=== PATIENT | female | born 1975 | race Caucasian/White ===

== ENCOUNTER 2025-05-19 19:27 | Emergency (ER) | payer OTHER, SELFPAY ==
--- OUTSIDE RECORDS SUMMARY | 2025-05-18 14:30 | XMS_ITS | Encounter Summary ---
Author Organization [facility] Address [address] [place] [address] Care Team Providers Care Batch Unit Treater Name Role Phone Erica Lopez MD Primary Care Provider [phone] Reason for Visit * Reason Comments Gynecologic Exam Lv 09-08-24 post op, last annual 05-15-24 pap 04-08-21 norm neg hpv Encounter Details Date Type Department Care Team ([facility] st Contact Info) Description 05/18/2025 2:30 PM EDT Office Visit [address] ORIENTATION AND MOBILITY INSTRUCTOR Department [address] [place] [phone] Nina Alvarenga MD [address] [place] [phone] Women's annual routine gynecological examination (Primary Dx) Social History Tobacco Use Types Packs/Day Years Used Date Smoking Tobacco: Former Cigarettes 0.5 6 0 07/19/1996 - 2002 Smokeless Tobacco: Never Alcohol Use Standard Drinks/Week Comments Yes 0 (1 standard drink = 0.6 oz pure alcohol) Social drinker 1-2 a month or less [facility] Utilities Answer Date Recorded In the past 12 months has [employer] electric, gas, oil, or water company threatened to shut off services in your home? No 10/02/2024 Hunger Vital Sign Answer Date Recorded Within the past 12 months, y ou worried that your food would run out before you got the money to buy more. Never true 10/03/19 25 Within the past 12 months, t he food you bought just didn't last and you didn't have money to get more. Never true 10/02/2024 Transportation Answer Date Recorded In the past 12 months, has l ack of reliable transportation kept you from medical appointments, meetings, work or from getting things needed for daily living? No 10/02/2024 Housing Answer Date Recorded Housing Risk Low 2 10/02/2024 Housing Risk Medium Not on file 10/02/2024 Housing Risk High Not on file 10/02/2024 What is your living situation today? [facility] 10/02/2024 Comments No Sex and Gender Information Value Date Recorded Sex Assigned at Female 07/05/2023 9:22 AM EST Legal Sex Female 12:04 AM EDT Gender Identity Female 07/05/2023 9:22 AM EST Sexual Orientation Straight 07/05/2023 9: 22 AM EST documented as of this encounter Last Filed Vital Signs Vital Sign Reading Time Taken Comments Blood Pressure 108/72 05/18/2025 2:23 PM EDT Pulse - - Temperature - - Respiratory Rate - - Oxygen Saturation - - Inhaled Oxygen Concentration - - Weight 58.1 kg (128 lb) 05/18/2025 2:23 PM EDT Height 170.2 cm (5' 7 ) 05/18/2025 2:23 PM EDT Body Mass Index 20.05 05/18/2025 2:23 PM EDT documented in this encounter Progress Notes * Nina Alvarenga MD - 05/18/2025 2:49 PM EDT Subjective Jasmin Pierre is a 49 y.o. G2, P2 menopausal female here for a routine annual exam. In 2020, patient was diagnosed with left invasive lobular cancer. She underwent chemotherapy, bilateral mastectomy followed by chemoradiation and tamoxifen for short time and now on Arimidex. Plan is Arimidex for 10 years. She is in a monogamous relationship and has decreased sex drive and some vaginal dryness help with lubrication. She underwent hysteroscopy in August 2024 for possible vaginal bleeding with finding showing atrophic endometrium with arcuate shaped uterus. Postmenopausal bleeding: No Vasomotor symptoms or vaginal dryness: No OBGYN History: No LMP recorded (lmp unknown). Patient is postmenopausal. Postmenopausal: Yes Last Pap: March 2021. Results were: negative cotest History of abnormal pap smears:Cryo of cervix in 2002 for LUCINDA-1 Last mammogram: Managed in the cancer center OB History No obstetric history on file. 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 Waller COLONOSCOPY 10/28/2022 Dr. Mckeon- Normal, repeat in 10 years. EYE SURGERY Bilateral 08/2022 GYNECOLOGIC CRYOSURGERY Cervix cryosurgery KNEE SURGERY Right 10/07/2011 Knee arthroscopy KNEE SURGERY Right 1994 MASTECTOMY 11/05/20 LA ESOPHAGOGASTRODUODENOSCOPY TRANSORAL DIAGNOSTIC N/A 08/09/2024 Procedure: UPPER ENDOSCOPY; DIAGNOSTIC WITH BRUSH/WASH (SP) WITH POSSIBLE MODERATE SEDATION; Surgeon: Aubrey Mckeon MD; Location: GI OR; Service: Gastroenterology LA HYSTEROSCOPY,W/ENDO BX N/A 08/25/2024 Procedure: HYSTEROSCOPY OPERATIVE; Surgeon: Nilson Reid MD; Location: OR; Service: Gynecology SIMPLE MASTECTOMY Bilateral 11/06/2020 With reconstruction Current Outpatient Medications Medication Sig Dispense Refill anastrozole (ARIMIDEX) 1 mg tablet Take 1 mg by mouth every night. ascorbic acid (VITAMIN C) 500 mg tablet Take 500 mg by mouth once a day. CALCIUM 26-MAGNESIUM 15-ZINC ORAL Take by mouth. cholecalciferol (VITAMIN D3) 2,000 unit tablet Take 1 tablet by mouth once a day. folic acid (FOLVITE) 1 mg tablet Take 1 mg by mouth once a day. LORazepam (ATIVAN) 0.5 mg tablet Take 1 tablet (0.5 mg total) by mouth 2 times a day as needed for anxiety. 20 tablet 1 nortriptyline (PAMELOR) 10 mg capsule Start nortriptyline 10 mg at bedtime for one week, then go upto 20 mg at bedtime after that as tolerated 180 capsule 11 oxybutynin (DITROPAN) 5 mg tablet Take 1 tablet by mouth 2 times a day. venlafaxine XR (EFFEXOR XR) 150 mg capsule Take 1 capsule (150 mg total) by mouth once a day. 90 capsule 3 zoledronic acid (ZOMETA INTRAVENOU) Infuse intravenously. Every 6 months No current facility-administered medications for this visit. Allergies Allergen Reactions Erythromycin Hives Penicillins Hives Reglan [Metoclopramide Hcl] Agitation And delusions Social History[1] Family History Problem Relation Age of Onset Hepatitis Mother abnormally smaller liver was not able to digest food, got hepatis A from [place] and when pt was 11 Lung disease Father copd, long covid; of covid complications and copd Asthma Brother Alcohol abuse Maternal Grandfather Diabetes Maternal Grandfather Alzheimer's disease Paternal Grandmother Parkinsonism Father's Brother motor and dementia Alzheimer's disease Mother's Brother Breast cancer Neg Hx Cervical cancer Neg Hx Colon cancer Neg Hx Endometrial cancer Neg Hx Ovarian cancer Neg Hx Osteoporosis Neg Hx Stroke Neg Hx Seizures Neg Hx Brain cancer Neg Hx Multiple sclerosis Neg Hx Review of Systems All other systems negative unless otherwise noted in the HPI. Objective General appearance: alert, appears stated age and cooperative Head: Normocephalic, without obvious abnormality, atraumatic Eyes: conjunctivae/corneas clear. PERRL, EOM's intact. Breasts: Status post bilateral mastectomy Abdomen: soft, non-tender Pelvic: cervix normal in appearance, external genitalia normal, no adnexal masses or tenderness, nocervical motion tenderness, uterus normal size, shape, and consistency and vagina normal without discharge Extremities: extremities normal, warm and well-perfused Skin: Skin color, texture, turgor normal. No rashes or lesions Neurologic: Grossly normal. Assessment & Plan 1. Women's annual routine gynecological examination (Primary) First visit with me for this 49-year-old 2 para 2 menopausal. She has been menopausal sincechemotherapy in 2020. She had stage IIIb invasive lobular left breast carcinoma and underwent bilateral mastectomy in 2020. She is now on Arimidex and the plan is for a total of 10 years. She is followed at cancer center at [facility]. She does experience vaginal dryness with relations and decreased libido relieved somewhat with lubrication. Pap smear was performed. DEXA is managed in the cancer center. - Thinprep Pap with HPV Screen and Reflex HPV 16, 18/45 - [place] only - RTC 1 year or prn Nina Alvarenga MD Answers submitted by the patient for this visit: Do you have any of the following problems? (Submitted on 05/12/2025) Speech difficulty: Yes [1] Social History Socioeconomic History Marital status: Spouse name: Not on file Number of children: Not on file Years of education: Not on file Highest education level: Not on file Occupational History Not on file Tobacco Use Smoking status: Former Current packs/day: 0.00 Average packs/day: 0.5 packs/day for 6.0 years (3.0 ttl pk-yrs) Types: Cigarettes Start date: 07/19/1996 Quit date: 2002 Years since quittin.8 Smokeless tobacco: Never Vaping Use Vaping status: Some Days Substances: THC Substance and Sexual Activity Alcohol use: Yes Comment: Social drinker 1-2 a month or less Drug use: Yes Types: Marijuana Comment: vapes marijuana nightly AND EDIBLES Sexual activity: Yes Partners: Male control/protection: None Other Topics Concern Not on file Social History Narrative Patient and , 2 children, boy/girl 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 documented in this encounter Plan of Treatment Upcoming Encounters Date Type Department Care Team (Late st Contact Info) Description 07/10/2025 8:45 AM EST Office Visit [address] Family Practice Department [address] [place] [phone] Erica Lopez MD [address] [place] [address] [place] [phone] 08/31/2025 11:00 AM EST Follow-Up [facility] Neurology [address] [place] [phone] Brionna Vyas MD [address] [place] [phone] 12/18/2025 2:30 PM EDT Appointment [facility] [address] [place] [phone] Brionna yVas MD [address] [place] [phone] Marco Jose MD [address] [place] [id number] Aj Kendrick 05/24/2026 2:00 PM EST Office Visit [address] ORIENTATION AND MOBILITY INSTRUCTOR Department [address] [place], [place] [id number] [place] [phone] Nina Alvarenga MD [address] [place] [phone] Scheduled Orders Name Type Priority Associated Diagnoses Orde r Schedule Thinprep Pap with HPV Screen and Reflex HPV 16, 18/45 - [facility] Pathology and Cytology Routine Women's annual routine gynecological examination Ordered: 05/18/2025 documented as of this encounter Visit Diagnoses Diagnosis Women's annual routine gynecological examination- Primary documented in this encounter Care Teams Batch Unit Treater Relationship Specialty Start Date End Date Erica Lopez MD [address] [place] [address] [address] [place] [address] PCP - General 02/04/17 documented as of this encounter
[2025-05-19] VITALS (7 sets, daily range): BP systolic 143–148; BP diastolic 80–99; PULSE 70–90; RESP 14–16; TEMP 36.6–36.7; O2SAT 95–99; BMI 21.5
--- NOTE | ~2025-05-19 | XR_ITS ---
CLINICAL HISTORY: ? posterior dislocation 2 view left shoulder Comparison: CR - XR HUMERUS 1V - 05/19/25 19:44 EDT Findings: The transscapular Y-view demonstrates a posterior humeral dislocation within the glenohumeral joint. The external rotation view shows flattening of the humeral head. No obvious fracture deformity is seen. No acute fractures or dislocations elsewhere. Partially visualized left lung and heart are unremarkable. Surgical clips in the left axilla. IMPRESSION: Posterior humeral dislocation with flattening of the humeral head. At the time of this dictation, a CT of the left shoulder has been performed and further details will be commented upon. This document has been electronically signed by: Laurent Grace MD on 05/19/2025 21:21:56
--- NOTE | ~2025-05-19 | CT_ITS ---
CLINICAL HISTORY: ssevere pain after injury, hx of post disloc CT of the left shoulder without contrast Comparison: Radiographs of the left shoulder 05/19/2025 Findings: There is a posterior humeral dislocation within the glenohumeral joint with an associated reverse hill-Sachs deformity. No other fractures are seen and no other dislocations are seen. No significant degenerative change in the left shoulder. Other osseous structures are grossly unremarkable. Partially visualized neck and thyroid are unremarkable. Partially visualized heart is unremarkable. Consolidation at the left lung apex with air bronchograms, possible pneumonia. Surgical clips in the left axilla. Impression: As reported on same day radiograph of the left shoulder, posterior humeral dislocation within the glenohumeral joint with an associated reverse Hill-Sachs deformity. Consolidation at the left lung apex with air bronchograms. Consider pneumonia in the appropriate clinical setting. This document has been electronically signed by: Laurent Grace MD on 05/19/2025 21:49:06
--- NOTE | ~2025-05-19 | XR_ITS ---
CLINICAL HISTORY: post reduction 2 view left shoulder Comparison: CR - XR SHOULDER LT MIN 2V - 05/19/2025 08:17 PM EDT Findings: Successful reduction of posterior left shoulder dislocation with the humeral head now overlying the glenoid on the transscapular Y-view. No new fracture or dislocation. Other osseous structures are unremarkable. Partially visualized heart and lungs are unremarkable. Surgical clips in the left axilla. IMPRESSION: Successful reduction of posterior left shoulder dislocation This document has been electronically signed by: Laurent Grace MD on 05/19/2025 23:56:14
--- NOTE | ~2025-05-19 | XR_ITS ---
CLINICAL HISTORY: ?dislocation 1 view left humerus Comparison: None provided Findings: The study is markedly limited. Only a single image was performed and positioning does not allow for either exclusion of dislocation or effusion. Incomplete visualization of the superior aspect of the humeral head. No significant arthritic change. No radiopaque foreign body. IMPRESSION: An elbow dislocation cannot be excluded based on this single limited view. Recommend AP and lateral view. If the patient is unable to tolerate these views, consider CT. This document has been electronically signed by: Maite Ocampo MD on 05/19/2025 20:21:26
--- NOTE | 2025-05-19 19:37 | ED_ITS ---
HPI - Extremity Problem General Chief complaint: Extremity Injury, Upper Stated complaint: left shoulder dislocation Time Seen by Provider: 05/19/25 19:37 History of Present Illness ED Provider: Zabrina BURRELL Narrative: The patient is a 49-year-old woman who comes to the emergency room after injuring her left shoulder while playing ice hockey. She says that she has a history of a prior dislocation of the same shoulder. She says that when she previously dose dislocated the shoulder it was a posterior dislocation. Today the patient was playing ice hockey and collided with a another player and injured her left shoulder in a manner that she felt was very similar to her previous left shoulder injury. She was in extreme pain. Her drove her to the emergency room. No numbness or tingling in the hand. There was no head injury. No other injuries aside from the shoulder injury. The patient reports that when she had her 1st shoulder dislocation she was in [place] of the time. She also says that there was difficulty in making the diagnosis. She also says that when her shoulder was 1st attempted to be reduced she was told that the shoulder had successfully been reduced but that that was not actually the case and she had to return for additional treatment. She ultimately followed up with [facility] The patient has a history of breast cancer. This was treated about 4 years ago. She is on Arixtra. She is also on venlafaxine. Related Data Allergies Allergy/AdvReac Type Severity Reaction Status Date / Time No Known Allergies Allergy Verified 05/19/25 19:34 Review of Systems Review of Systems: Yes all other systems are reviewed and are negative [facility] Social History Social History Smoked in Last 30 Days: No Use of substances other than those prescribed or required for medical reasons: No Advance Directives: No Advance Directives Information Provided: No Do you have a plan to hurt others: No Plan Physical Exam Vital Signs: Vital Signs: Last Vital Signs Temp 97.9 F 05/19/25 23:47 Pulse 86 05/19/25 23:47 Resp 14 05/19/25 23:47 BP 146/97 H 05/19/25 23:47 Pulse Ox 99 05/19/25 23:47 Oxygen Flow Rate 3 05/19/25 22:46 BMI result Body Mass Index 21.5 Const: Other: The patient is an athletic looking 49-year-old who was wearing a lot of heavy ice hockey protective equipment. She looked very uncomfortable. Orientation/consciousness: patient oriented x3 HEENT: Other: No signs of trauma to the head or the face. Eyes: Other: Pupils are round equal, conjunctivae are clear, extraocular movements intact Neck: Other: No posterior midline C-spine tenderness. Moving her neck easily without pain. C-spine is clinically clear. Resp: Effort & Inspection: normal respiratory effort Auscultation: clear to auscultation bilaterally Cardio: Rate: regular rate Rhythm: regular rhythm Heart sounds: S1 normal heart sound present and S2 normal heart sound present Skin: Other: Skin is intact Neuro: General: patient oriented x3, tone normal, moves all extremities, no focal motor deficits and CN's II-XI intact bilaterally Extrem: Other: The patient is extremely tender around the left shoulder and she will not move the left arm because of pain at the shoulder. The clavicle seems intact. There was no obvious gross deformity to the glenohumeral joint although it had a slightly strange appearance. The left hand is neurovascularly intact. Medications Administered Discontinued Medications Generic Name Dose Route Start Last Admin Trade Name Freq PRN Reason Stop Dose Admin Diazepam 5 mg 05/19/25 19:54 05/19/25 19:59 Diazepam 10 Mg/2 Ml Cartridge IVPUSH 05/19/25 19:55 5 mg STAT STA Administration Hydromorphone HCl 1 mg 05/19/25 19:44 05/19/25 19:53 Hydromorphone Hcl 1 Mg/Ml Syringe IVPUSH 05/19/25 19:45 1 mg ONCE ONE Administration Protocol Hydromorphone HCl 1 mg 05/19/25 20:17 05/19/25 20:21 Hydromorphone Hcl 1 Mg/Ml Syringe IVPUSH 05/19/25 20:18 1 mg ONCE ONE Administration Protocol Ketorolac Tromethamine 15 mg 05/19/25 21:26 05/19/25 21:44 Ketorolac Tromethamine 15 Mg/Ml Vial IVPUSH 05/19/25 21:27 15 mg ONCE ONE Administration Propofol 70 mg 05/19/25 22:13 05/19/25 22:28 Propofol 200 Mg/20 Ml Vial IVPUSH 05/19/25 22:14 70 mg ONCE ONE Administration Propofol 30 mg 05/19/25 22:42 05/19/25 22:31 Propofol 200 Mg/20 Ml Vial IVPUSH 05/19/25 22:43 30 mg ONCE ONE Administration Medical Decision Making Medical Decision Making [facility] Narrative: The patient is a 49-year-old woman who presents to the emergency room with a acute left shoulder pain after 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 She has a history of a previous left shoulder dislocation which she says was a posterior dislocation. We obtained x-rays that showed a ?light bulb? appearance to the left humeral head but it was my impression that there was not a definite dislocation apparent. The patient was treated with the pain medications and we obtained a CT scan. I reviewed the images of the CT scan and felt that there was a subluxation of the humeral head with malrotation but I do not appreciate a definite complete posterior dislocation. Radiology however felt that both the plain films and the CT scan were consistent with a posterior dislocation. The radiologist felt there was a reverse Hill-Sachs deformity. For this reason the patient was procedurally sedated for reduction of this injury. After informed consents were obtained we performed a procedural sedation using usual procedural sedation protocols. Once the patient was unconscious from propofol I was able to manipulate the left arm and this made the deformity at 1st more apparent. With essentially external rotation of the left arm there was a visible change in the position of the humeral head a consistent with a reduction. The appearance of the joint than looked much more normal. Postreduction x-rays were obtained and these looked as if there was a normal alignment of the glenohumeral joint. Strangely, when the patient emerged from her sedation, she had 1st said that she felt that her shoulder was still dislocated although she was moving the shoulder much better. Clinically there did not seem to be any re-injury or re- dislocation. We obtained postreduction films that I thought looked as if the reduction was successful. I then spoke to the patient has sometime later at which point she acknowledged that the arm felt much better. She was given a shoulder immobilizer and discharged with her to follow up with [facility] where she was seen after her 1st shoulder dislocation. Procedures Orthopedic Joint Reduction Joint #1: Time Out Performed: Yes Side: left Joint Reduction Location: shoulder Analgesia: procedural sedation Shoulder Technique Used (if applicable): external rotation Post-reduction neuro exam: intact Post-reduction vascular: intact Post Reduction X-Ray Obtained: Yes Patient Tolerated Procedure: well Additional Comments: The patient was given a shoulder immobilizer. Discharge Plan Discharge Clinical Impression: Closed posterior dislocation of left shoulder Patient Disposition: Home, Self-Care Instructions: Shoulder Dislocation (ED), Shoulder Immobilizer (ED) Additional Instructions: Please wear the shoulder immobilizer to get home. If you have a preferred piece of medical equipment at home you may change into that when you get home. The usual instructions for shoulder dislocations are to wear the immobilizer even while sleeping but that you may remove the immobilizer for hygiene and at other times when you know that you will not be putting your shoulder at risk. Please use ibuprofen and acetaminophen as needed for pain. Please contact [facility] on Wednesday for a follow up appointment soon. Return to the emergency room if significantly worse. Referrals: [facility] Surgeon [Provider Group, Orthopedics] Interventions: ED Discharge Assessment Last Done: 05/19/25 23:47 Discharge Date/Time: 05/19/25 23:48 Print Language: [place]
[2025-05-19] MEDS: diazePAM 10 MG/2 ML CARTRIDGE 5 MG IVPUSH (19:59)
--- OUTSIDE RECORDS SUMMARY | 2025-05-19 20:08 | XMS_ITS | Encounter Summary ---
Author Organization [facility] Address [address] [place] [address] Phone Care Team Providers Care Power Equipment Technology Instructor Name Role Phone Erica Lopez MD Primary Care Provider [phone] Self-Referred, Patient Unavailable Unavailab Cheyanne Elliott MD, MPH Unavailable [phone] Gonzalo Troy MD Unavailable [phone] Sabrina Hidalgo MD Unavailable Sarah Porter PA-C Unavailable [phone] Conchita Menezes MD Unavailable [phone] Erica Lopez MD Primary Care Provider + [phone] Encounter Details Date Type Department Care Team (Late st Contact Info) Description 01/08/2022 Ancillary Orders [facility], [facility], [facility] [place] [facility] [place] [address] [facility] [address] [place] [address] Cynthia Osborn, [address] [address] [email or web address] Malignant neoplasm of left female breast, unspecified estrogen receptor status, unspecified site of breast Social History Tobacco Use Types Packs/Day Years Used Date Smoking Tobacco: Former Smokeless Tobacco: Never Comments:Smoked for 6-7 year s in her 20s. Alcohol Use Standard Drinks/Week Comments Not Currently 0 (1 standard drink = 0.6 oz pur e alcohol) Comments No Sex and Gender Information Value Date Recorded Sex Assigned at Female 09/24/2020 8:34 PM EST Legal Sex Female 11:18 AM EST Gender Identity Female 09/24/2020 8:34 PM EST Sexual Orientation Straight 09/24/2020 8: 34 PM EST documented as of this encounter Plan of Treatment Not on file documented as of this encounter Results * US Axilla - Breast Imaging (Left) (04/07/2022 11:01 AM EDT) Anatomical Region Laterality Modality Breast Ultrasound Other 04/07/2022 11:1 4 AM EDT Impressions 04/07/2022 11:40 AM EDT Left Axilla: Category 2. Area of palpable concern corresponds to a benign lymph node. Recommendation: Clinical follow up at this time. Results were discussed with the patient and a written summary was provided at the time of the study. OVERALL ASSESSMENT -- BI-RADS 2 BENIGN ATTESTATION: Odette Cespedes, as teaching physician have reviewed the images, if any, for this patient's exam, and if necessary, have edited the report originally created by Yves Dahl. Narrative 04/07/2022 11:40 AM EDT Reason for exam (per EHR order): Lump Or Thickening Bilateral; lump Additional clinical information obtained from the EHR: 46-year-old woman with history of left breast cancer status post bilateral mastectomy and implant reconstruction presents for follow-up of a probably benign finding in the left axilla since 01/08/2022 TECHNIQUE: Real-time ultrasound was performed using a high-frequency linear-array transducer. COMPARISON: Correlation is made with relevant prior imaging in PACS. FINDINGS: Left Axilla: Targeted ultrasound performed to the area of clinical concern indicated by the patient and the prior ultrasound in the left axilla, 7 cm from the center of reconstructed breast shows a normal-appearing lymph node with cortical thickness up to 0.2 cm. Procedure Note Odette Thapa MD - 04/07/2022 Reason for exam (per EHR order): Lump Or Thickening Bilateral; lump Additional clinical information obtained from the EHR: 46-year-old woman with history of left breast cancer status post bilateralmastectomy and implant reconstruction presents for follow-up of a probablybenign finding in the left axilla since 01/08/2022 TECHNIQUE: Real-time ultrasound was performed using a high-frequency linear- arraytransducer. COMPARISON: Correlation is made with relevant prior imaging in PACS. FINDINGS: Left Axilla: Targeted ultrasound performed to the area of clinical concern indicated bythe patient and the prior ultrasound in the left axilla, 7 cm from thecenter of reconstructed breast shows a normal-appearing lymph node withcortical thickness up to 0.2 cm. IMPRESSION: Left Axilla: Category 2. Area of palpable concern corresponds to a benign lymph node. Recommendation: Clinical follow up at this time. Results were discussed with the patient and a written summary was providedat the time of the study. OVERALL ASSESSMENT -- BI-RADS 2 BENIGN ATTESTATION: Odette Cespedes, as teaching physician have reviewed theimages, if any, for this patient's exam, and if necessary, have edited thereport originally created by Yves Dahl. Cynthia Osborn [facility] US BREAST Final Result documented in this encounter Visit Diagnoses Diagnosis Malignant neoplasm of left female breast, unspecified estrogen receptor status, unspecified site of breast Malignant neoplasm of left female breast, unspecified estrogen receptor status, unspecified site of breast documented in this encounter Care Teams Power Equipment Technology Instructor Relationship Specialty Start Date End Date Erica Lopez MD [address] [place] [address] [email or web address] PCP - General Family Medicine 09/19/20 03/25/22 Erica Lopez MD [address] [place] [address] [email or web address] PCP - General Family Medicine 03/26/22 Self-Referred, Patient Referring Physician 3/4/21 Cheyanne Devi MD, MPH [address] [place] [address] [email or web address] Medical Oncology 09/27/20 Gonzalo Troy MD [address] [place] [address] [email or web address] Surgical Oncology 09/27/20 Sabrina Hidalgo MD [address] [place] [phone] [email or web address] Radiation Oncology 11/21/20 Sarah Porter PA-C [address] [place] [phone] [email or web address] Breast Surgery 11/22/20 Conchita Menezes MD [address] [place] [address] [place] [address] Medical Oncology 11/22/20 documented as of this encounter Additional Source Comments The information contained in this document represents components of the legal health record. It is not the complete legal health record.[facility]
--- OUTSIDE RECORDS SUMMARY | 2025-05-19 20:08 | XMS_ITS | Encounter Summary ---
Author Organization [facility] Address [address] [place] [address] Phone Care Team Providers Care Divider Operator Name Role Phone Erica Lopez MD Primary Care Provider [phone] Self-Referred, Patient Unavailable Unavailab Cheyanne Elliott MD, MPH Unavailable [phone] Gonzalo Troy MD Unavailable [phone] Sabrina Hidalgo MD Unavailable Sarah Porter PA-C Unavailable [phone] Conchita Menezes MD Unavailable [phone] Erica Lopez MD Primary Care Provider + [phone] Encounter Details Date Type Department Care Team (Late st Contact Info) Description 01/08/2022 Ancillary Orders [facility], [facility], [facility] [place] [address] [facility], 9th [place] [address] Gonzalo Troy MD [address] [place] [address] [email or web address] Abnormal finding on breast imaging Social History Tobacco Use Types Packs/Day Years [...] on file documented as of this encounter Visit Diagnoses Diagnosis Abnormal finding on breast imaging documented in this encounter Care Teams Divider Operator Relationship Specialty Start Date End Date Erica Lopez MD [address] [place] [address] [email or web address] PCP - General Family Medicine 09/19/20 03/25/22 Erica Lopez MD [address] [place] [address] [email or web address] PCP - General Family Medicine 03/26/22 Self-Referred, Patient Referring Physician 09/19/20 Cheyanne Devi MD, MPH [address] [place] [address] [email or web address] Medical Oncology 09/27/20 Gonzalo Troy MD [address] [place] [address] [email or web address] Surgical Oncology 09/27/20 Sabrina Hidalgo MD [address] [place] [address] [email or web address] Radiation Oncology 11/21/20 Sarah Porter PA-C [address] [place] [phone] [email or web address] Breast Surgery 11/22/20 Conchita Menezes MD [address] [place] [address] Medical Oncology 11/22/20 documented as of this encounter Additional Source Comments The information contained in this document represents components of the legal health record. It is not the complete legal health record.[facility]
--- OUTSIDE RECORDS SUMMARY | 2025-05-19 20:08 | XMS_ITS | Encounter Summary ---
Author Organization [facility] Address [address] [place] [address] Phone Care Team Providers Care Anatomic Pathology Assistant Name Role Phone Erica Lopez MD Primary Care Provider [phone] Self-Referred, Patient Unavailable Unavailab Cheyanne Elliott MD, MPH Unavailable [phone] Gonzalo Troy MD Unavailable [phone] Sabrina Hidalgo MD Unavailable Sarah Porter PA-C Unavailable [phone] Conchita Menezes MD Unavailable [phone] Erica Lopez MD Primary Care Provider + [phone] Encounter Details Date Type Department Care Team (Late st Contact Info) Description 01/08/2022 Ancillary Orders [facility], [facility], [facility] [place] [address] [facility], 9th [place] [address] Gonzalo Troy MD [address] [place] [address] [email or web address] Follow up Social History Tobacco Use Types Packs/Day Years [...] as of this encounter Visit Diagnoses Diagnosis Follow up documented in this encounter Care Teams Anatomic Pathology Assistant Relationship Specialty Start Date End Date Erica Lopez MD [address] [place] [address] [email or web address] PCP - General Family Medicine 09/19/20 03/25/22 Erica Lopez MD [address] [place] [address] [email or web address] PCP - General Family Medicine 03/26/22 Self-Referred, Patient Referring Physician 09/19/20 Cheyanne Devi MD, MPH [address] [place] [address] [email or web address] Medical Oncology 09/27/20 Gonzalo Troy MD [address] [place] [address] [email or web address] Surgical Oncology 09/27/20 Sabrina Hidalgo MD [address] [place] [address] [email or web address] Radiation Oncology 11/21/20 Sarah Porter PA-C [address] [place] [phone] [email or web address] Breast Surgery 11/22/20 Conchita Menezes MD [facility] [place] [address] Medical Oncology 11/22/20 documented as of this encounter Additional Source Comments The information contained in this document represents components of the legal health record. It is not the complete legal health record.[facility]
--- OUTSIDE RECORDS SUMMARY | 2025-05-19 20:09 | XMS_ITS | Encounter Summary ---
Author Organization [facility] Address [address] [place] [address] Care Team Providers Care Real Estate Instructor Name Role Phone Erica Lopez MD Primary Care Provider [phone] Encounter Details Date Type Department Care Team (Late st Contact Info) Description 11/25/2023 Orders Only [facility] Interventional Radiology [address] [place] [address] [phone] Eliezer Govea MD [address] [place], [place] [phone] Social History Tobacco Use Types Packs/Day Years Used Date Smoking Tobacco: Former Cigarettes 0.5 6 1 997 - 2002 Smokeless Tobacco: Never Alcohol Use Standard Drinks/Week Comments Yes 0 (1 standard drink = 0.6 oz pur e alcohol) Social drinker 1-2 a month Transportation Answer Date Recorded Please abhishek the areas for wh ich the patient would like information or assistance: None Apply 07/05/2023 Lack of Transportation (Medical) Not on file 07/05/2023 Housing Stability Answer Date Recorded Please abhishek the areas for wh ich the patient would like information or assistance: None Apply 07/05/2023 Unable to Pay for Housing in the Last Year Not o n file 07/05/2023 Last EPDS Total Score Not on file 07/05/2023 Unstable Housing in the Last Year Not on file 07/05/2023 Comments Unknown Sex and Gender Information Value Date Recorded Sex Assigned at Female 07/05/2023 9:22 AM EST Legal Sex Female 12:04 AM EDT Gender Identity Female 07/05/2023 9:22 AM EST Sexual Orientation Straight 07/05/2023 9: 22 AM EST documented as of this encounter Plan of Treatment Upcoming Encounters Date Type Department Care Team (Late st Contact Info) Description 07/10/2025 8:45 AM EST Office Visit [address] Family Practice Department [address] [place] [phone] Erica Lopez MD [address] [place] [address] 08/31/2025 11:00 AM EST Follow-Up [facility] Neurology [address] [place] [address] Brionna Vyas MD [address] [place] [address] 12/18/2025 2:30 PM EDT Appointment [facility] Neurodiagnostics [address] [place] [address] Brionna Vyas MD [address] [place] [address] Marco Jose MD [address] [place] [address] Aj Kendrick 05/24/2026 2:00 PM EST Office Visit [address] ROOF BOLTER Department [address] [place] [phone] Nina Alvarenga MD [address] [place] [address] documented as of this encounter Visit Diagnoses Not on filedocumented in this encounter Care Teams Real Estate Instructor Relationship Specialty Start Date End Date Erica Lopez MD [address] [place] [address] PCP - General 02/04/17 documented as of this encounter
--- OUTSIDE RECORDS SUMMARY | 2025-05-19 20:09 | XMS_ITS | Encounter Summary ---
Author Organization [facility] Address [address] [place] [address] Care Team Providers Care Silk Screen Painter Name Role Phone Erica Lopez MD Primary Care Provider [phone] Encounter Details Date Type Department Care Team (Late st Contact Info) Description 12/01/2024 [facility] Intial Department [address] [place] [address] Mychart, Generic Provider [facility] [place] [id number] Questionnaire Submission Social History Tobacco Use Types Packs/Day Years Used Date Smoking Tobacco: Former Cigarettes 0.5 6 0 07/19/1996 - 2002 Smokeless Tobacco: Never Alcohol Use Standard Drinks/Week Comments Yes 0 (1 standard drink = 0.6 oz pure alcohol) Social drinker 1-2 a month or less [facility] Utilities Answer Date Recorded In the past 12 months has th e electric, gas, oil, or water company threatened [...] Description 07/10/2025 8:45 AM EST Office Visit [address] Family Practice Department [address] [place] [address] Erica Lopez MD [address] [place] [address] [address] [place] [address] 08/31/2025 11:00 AM EST Follow-Up [facility] Neurology [address] [place] [address] Brionna Vyas MD [address] [place] [address] 12/18/2025 2:30 PM EDT Appointment [facility] Neurodiagnostics [address] [place] [address] Brionna Vyas MD [address] [place] [address] Marco Jose MD [address] [place] [address] Aj Kendrick 05/24/2026 2:00 PM EST Office Visit [address] AGENCY DEVELOPMENT MANAGER Department [address] [place] [phone] Nina Alvarenga MD [address] [place] [address] documented as of this encounter Visit Diagnoses Not on filedocumented in this encounter Care Teams Silk Screen Painter Relationship Specialty Start Date End Date Erica Lopez MD [address] [place] [address] PCP - General 02/04/17 documented as of this encounter
--- OUTSIDE RECORDS SUMMARY | 2025-05-19 20:09 | XMS_ITS | Data Portability ---
Author Organization [place] [facility] [place] Address [address] [place] [address] Care Team Providers Care Coverage Specialist Rn Name Role Phone DOMENICO RILEY Primary Care Provider DOMENICO RILEY Referring Provider Assessment Encounter Date Assessment Date Assessment LastModified by Organization Details LastModified Time 01/17/2025 01/17/2025 Posttraumatic osteoarthritis and right knee suprapatellar effusion. She elected to move forward with an aspiration and injection today. 30 cc of normal synovial fluid was obtained. Cortisone injection without difficulty. Postinjection instructions reviewed. Follow-up in 3 to 4 weeks or sooner if needed. Patient was seen and evaluated by Mojgan Cat PA-C in indirect conjunction with Documenting Provider: Sánchez Aguilar MD He/She agrees with history, physical examination, tests/diagnostic imaging, and treatment plan Not available 01/18/2025 08:31:11 Plan of Treatment Reminders Order Date Submit Date Provider Last Modified By Organization Details Last Modified Time Details Appointments None recorded. Lab None recorded. Referral None recorded. Procedures None recorded. Surgeries None recorded. Imaging XR, knee, 3 view 2024 025 [email or web address] [facility], [address], [facility] [address], [place], [address], 08:37:48 Medication Orders lidocaine (PF) 100 mg/5 mL (2 %) injection syringe 2024 025 [email or web address] [facility][id number], [address] [place], [address], 5 08:37:48 triamcinolo ne acetonide 40 mg/mL suspension for injection 2024 025 [email or web address] [id number], [address] [place], [address], 5 08:37:48 Patient TargetsNo targets recorded. Patient Instructions Encounter Date Encounter Id Patient Instructions Last Modified By Organization Details Last Modified Time 01/17/2025 [id number] X-rays of the right knee were obtained on 01/17/2025 which demonstrates left knee chondrocalcinosis , right knee medial compartment narrowing. [email or web address] Not available 01/18/2025 08:30:48 Reason for Referral None Reported. Procedures Surgical History Date Name Laterality Status Provider Name and Address Organization Details Recorded Time 5 MJG Knee Aspiration completed MOJGAN CAT PA-C [address], [place], [address], [facility] 01/18/2025 08:19:16 Knee Surgery completed Eric Kc [facility] [place] 01/17/2025 15:18:40 Imaging Results None recorded. Procedure Notes None recorded. Medical Equipment None Reported. Allergies Allergen ID Allergen Name Allergen Category Reaction Reaction Severity Criticality Documentation Date Start Date Code Code System Note Provider Name and Address Organization Details Recorded Time 555105 erythromy jennifer medicatio n Not available Not available Not available 04/10/20252019 4053 RxNorm Not Available [facility] 5 01:32:09 Medications Name Sig Start Date Stop Date Status Note LastModified by Organization Details LastModified Time anastrozole 1 mg tablet TAKE 1 TABLET BY MOUTH EVERY DAY active Not Available Not Available No t Available cetirizine 10 mg tablet Take 10 mg by mouth daily. active Not Available Not Available No t Available meloxicam 15 mg tablet Take 15 mg by mouth daily. 2019 active Not Available Not Available Not Avai lable ondansetron HCl 4 mg tablet Take 1 tablet by mouth every 6-8 hours as needed for nausea 2019 active Not Available Not Available Not Avai lable venlafaxine ER 150 mg capsule,ext ended release 24 hr TAKE 1 CAPSULE (150 MG) BY MOUTH DAILY active Not Available Not Available No t Available oxycodone-a cetaminophe n 5 mg-325 mg tablet TAKE 1 TABLET BY MOUTH EVERY 4 HOURS FOR 2 DAYS NEEDED FOR MODERATE PAIN active Not Available Not Available No t Available lorazepam 0.5 mg tablet TAKE 1 TABLET BY MOUTH 2 TIMES A DAY NEEDED FOR ANXIETY. active Not Available Not Available No t Available triamcinolo ne acetonide 40 mg/mL suspension for injection Take 60 mg by injection route. 2024 active Not Available Not Available Not Avai lable misoprostol 200 mcg tablet INSERT 1 TABLET IN VAGINA ONCE THE NIGHT BEFORE SURGERY - NOT TO BE TAKEN ORALLY active Not Available Not Available No t Available oxybutynin chloride 5 mg tablet TAKE 1/2 TABLET BY MOUTH TWICE A DAY active Not Available Not Available No t Available naproxen 500 mg tablet TAKE 1 TABLET BY MOUTH TWICE A DAY WITH FOOD FOR 10 DAYS active Not Available Not Available No t Available diclofenac 1 % topical gel Place onto the skin. active Not Available Not Available No t Available venlafaxine ER 75 mg tablet,exte nded release 24 hr TAKE 1 TABLET BY MOUTH EVERY DAY active Not Available Not Available No t Available lidocaine (PF) 100 mg/5 mL (2 %) injection syringe Take 3 mL by injection route. 2024 active Not Available Not Available Not Avai lable meloxicam 15 mg disintegrat ing tablet Take by mouth. 04/12 completed Not Available Not Available Not Available Miebo (PF) 100 % eye drops INSTILL ONE DROP INTO BOTH EYES FOUR TIMES DAILY . BOTTLE PREPARATI ON IS REQUIRED. REFER TO PACKAGE INSERT FOR SPECIAL PREPARATI ON AND ADMIN active Not Available Not Available No t Available Vitals Date Recorded Body height Body mass index (BMI) Body weight Provider Name and Address Organization Details Last Updated DateTime 01/17/2025 170.18 cm 19.6 kg/m2 36877.[address] [facility] 01/17/2025 15:17:24 Social History Question Answer Notes LastModified by Organizat ion Details LastModified Time Tobacco Smoking Status Never Smoker Eric Kc null, [place] [facility] 01/17/2025 15:19:28 Which Illicit Or Recreational Drugs Have You Used? Marijuana [email or web address] Information not available 01/17/2025 Sex: Unknown Functional Status Question Answer Note LastModified by Organizat ion Details LastModified Time How many times per week do you consume alcohol? Less than 1 time per week [email or web address] Information not available 01/17/2025 Do you use any illicit or recreational drugs? Yes [email or web address] Information not available 01/17/2025 Do you or have you ever used any other forms of tobacco or nicotine? No [email or web address] Information not available 01/17/2025 What is your level of alcohol consumption? Occasional Information not available 01/17/2025 Mental Status None recorded. Family History Nothing Reported. Medical History Condition Response Cancer Y Gynecological HistoryNo gynecological history recorded. Obstetrics History GPAL:G 0 P 0 0 0 0 Past Encounters Encounter ID Performer Location Encounter Start Date Encounter Closed Date Diagnosis/Indication Diagnosis SNOMED-CT Code Diagnosis ICD10 Code Diagnosis IMO Codes Diagnosis Note [id number] MOJGAN CAT PA-C [facility] [address] [place] [phone] 01/17/2025 14:51:18 01/17/2025 15:47:33 Pain of right knee joint 4822247877 96168 M25.561 104491 Osteoarthr itis of right knee joint 6172690690 78284 M17.11 [id number] Health Concerns Section Related Observation LastModified by Organization Detai ls LastModified Time None Recorded Concern Status LastModified by Organization Details LastModified Time None Recorded Advance Directives Directive None Recorded Payers Insurance Date Sequence Insurance Name Policy Number Policy Robert Covered Member ID Robert Member ID Guarantor Name 01/17/2025 1 [employer] - [employer]TR[employer]EFITS (PPO) Jasmin Pierre [id number] Jasmin Pierre Notes Date Note Type Note Provider Name and Address Organization Details Recorded Time 01/17/2025 text/html Jasmin Pierre is a 49-year-old female who presents as a walk-in patient for evaluation regarding her right knee. She is a prior patient of Dr. Curtis where she underwent a right medial meniscectomy. She has also had 4 other procedures by outside physicians. Over this past weekend she was at a wedding and did some dancing. She had developed fluid and pain in the knee following this. As her symptoms did not improve she decided to present to the walk-in today. She has poor range of motion at baseline and typically has discomfort when using the stairs. MOJGAN CAT PA-C [address], [place], [address], [facility] 01/18/2025 08:31:17 OBGyn Episode No OBEpisode recorded.
--- OUTSIDE RECORDS SUMMARY | 2025-05-19 20:09 | XMS_ITS | Encounter Summary ---
Author Organization [facility] Address [address] [place] [address] Phone Care Team Providers Care Nuclear Medicine Tech Name Role Phone Erica Lopez MD Primary Care Provider [phone] Self-Referred, Patient Unavailable Unavailab Cheyanne Elliott MD, MPH Unavailable [phone] Gonzalo Troy MD Unavailable [phone] Sabrina Hidalgo MD Unavailable Sarah Porter PA-C Unavailable [phone] Conchita Menezes MD Unavailable [phone] Erica Lopez MD Primary Care Provider [phone] Encounter Details Date Type Department Care Team (Late st Contact Info) Description 09/27/2020 Procedure Pass [facility], [facility], MRI [address] [address] Social History Tobacco Use Types Packs/Day Years Used Date Smoking Tobacco: Former Smokeless Tobacco: Never Comments Unknown Sex and Gender Information Value [...] on filedocumented in this encounter Care Teams Nuclear Medicine Tech Relationship Specialty Start Date End Date Erica Lopez MD [address] [place] [address] [email or web address] PCP - General Family Medicine 09/19/20 03/25/22 Erica Lopez MD [address] [place] [phone] [email or web address] PCP - General Family Medicine 03/26/22 Self-Referred, Patient Referring Physician 09/19/20 Cheyanne Devi MD, MPH [address] [place] [phone] [email or web address] u Medical Oncology 09/27/20 Gonzalo Troy MD [address] [place] [phone] [email or web address] Surgical Oncology 09/27/20 Sabrina Hidalgo MD [address] [place] [address] [email or web address] Radiation Oncology 11/21/20 Sarah Porter PA-C [address] [place] [phone] [email or web address] du Breast Surgery 11/22/20 [place] [address] [place] [address] [place] [address] Medical Oncology 11/22/20 documented as of this encounter Additional Source Comments The information contained in this document represents components of the legal health record. It is not the complete legal health record.[facility]
--- OUTSIDE RECORDS SUMMARY | 2025-05-19 20:09 | XMS_ITS | Encounter Summary ---
Author Organization [facility] Address [address] [place] [address] Phone Care Team Providers Care Middle [employer] Professional Name Role Phone Erica Lopez MD Primary Care Provider [phone] Self-Referred, Patient Unavailable Unavailab Cheyanne Elliott MD, MPH Unavailable [phone] Gonzalo Troy MD Unavailable [phone] Sabrina Hidalgo MD Unavailable [phone] Sarah Porter PA-C Unavailable [phone] Conchita Menezes MD Unavailable [phone] Erica Lopez MD Primary Care Provider [phone]- [phone] Encounter Details Date Type Department Care Team (Late st Contact Info) Description 09/27/2020 Procedure Pass [facility] [place], Mammography, [facility] Imaging Department [address] [place] [address] Social History Tobacco Use Types Packs/Day Years [...] on filedocumented in this encounter Care Teams Middle [employer] Professional Relationship Specialty Start Date End Date Erica Lopez MD [address] [place] [address] [email or web address] PCP - General Family Medicine 09/19/20 03/25/22 Erica Lopez MD [address] [place] [address] [email or web address] PCP - General Family Medicine 03/26/22 Self-Referred, Patient Referring Physician 09/19/20 Cheyanne Devi MD, MPH [address] [place] [address] [email or web address] Medical Oncology 09/27/20 Gonzalo Troy MD [address] [place] [address] [email or web address] Surgical Oncology 09/27/20 Sabrina Hidalgo MD [address] [place] [address] [email or web address] Radiation Oncology 11/21/20 Sarah Porter PA-C [address] [place] [address] [phone] [email or web address] du Breast Surgery 11/22/20 Conchita Menezes MD [address] [place] [address] [place] [address] Medical Oncology 11/22/20 documented as of this encounter Additional Source Comments The information contained in this document represents components of the legal health record. It is not the complete legal health record.[facility]
--- OUTSIDE RECORDS SUMMARY | 2025-05-19 20:09 | XMS_ITS | Encounter Summary ---
Author Organization [facility] Address [address] [place] [address] Phone Care Team Providers Care Head Setter Name Role Phone Erica Lopez MD Primary Care Provider [phone] Self-Referred, Patient Unavailable Unavailab Cheyanne Elliott MD, MPH Unavailable [phone] Gonzalo Troy MD Unavailable [phone] Sabrina Hidalgo MD Unavailable [phone] Sarah Porter PA-C Unavailable [phone] Conchita Menezes MD Unavailable [phone] Erica Lopez MD Primary Care Provider + [phone] Encounter Details Date Type Department Care Team (Late st Contact Info) Description 10/09/2020 Ancillary Orders [facility], [facility], [facility] [address] [facility], [address]th [place] [address] Gonzalo Troy MD [address] [place] [address] [email or web address] u Social History Tobacco Use Types Packs/Day Years Used Date Smoking Tobacco: Former Smokeless Tobacco: Never Comments:Smoked for 6-7 year s in her 20s. Alcohol Use Standard Drinks/Week Comments Yes 0 (1 standard drink = 0.6 oz pur e alcohol) 1-2 drinks a week Comments Unknown Sex and Gender Information Value [...] on filedocumented in this encounter Care Teams Head Setter Relationship Specialty Start Date End Date Erica Lopez MD [address] [place] [address] [email or web address] PCP - General Family Medicine 09/19/20 03/25/22 Erica Lopez MD [address] [place] [address] [email or web address] .[email or web address] PCP - General Family Medicine 03/26/22 Self-Referred, Patient Referring Physician 09/19/20 Cheyanne Devi MD, MPH [address] [place] [address] [email or web address] Medical Oncology 09/27/20 Gonzalo Troy MD [address] [place] [address] [email or web address] Surgical Oncology 09/27/20 Sabrina Hidalgo MD [address] [place] [phone] [email or web address] Radiation Oncology 11/21/20 Sarah Porter PA-C [address] [place] [phone] [email or web address]. du Breast Surgery 11/22/20 Conchita Menezes MD [address] [facility] [place] [address] Medical Oncology 11/22/20 documented as of this encounter Additional Source Comments The information contained in this document represents components of the legal health record. It is not the complete legal health record.[facility]
--- OUTSIDE RECORDS SUMMARY | 2025-05-19 20:09 | XMS_ITS | Encounter Summary ---
Author Organization [facility] Address [address] [place] [address] Phone Care Team Providers Care Commercial Baker Helper Name Role Phone Erica Lopez MD Primary Care Provider [phone] Self-Referred, Patient Unavailable Unavailab Cheyanne Elliott MD, MPH Unavailable [phone] Gonzalo Troy MD Unavailable [phone] Sabrina Hidalgo MD Unavailable [phone] Sarah Porter PA-C Unavailable [phone] Conchita Menezes MD Unavailable [phone] Erica Lopez MD Primary Care Provider [phone]- [phone] Encounter Details Date Type Department Care Team (Late st Contact Info) Description 10/09/2020 Procedure Pass [facility] [address] [facility] 2nd [place] [address] Social History Tobacco Use Types Packs/Day Years Used Date Smoking Tobacco: Former Smokeless Tobacco: Never Comments:Smoked for 6-7 year s in her 20s. Alcohol Use Standard Drinks/Week Comments Yes 0 (1 standard drink = 0.6 oz pur e alcohol) 1-2 drinks a week Comments No Sex and Gender Information Value Date Recorded Sex Assigned at Female 09/24/2020 8:34 PM EST Legal Sex Female 11:18 AM EST Gender Identity Female 09/24/2020 8:34 PM EST Sexual Orientation Straight 09/24/2020 8: 34 PM EST documented as of this encounter Last Filed Vital Signs Vital Sign Reading Time Taken Comments Blood Pressure - - Pulse - - Temperature - - Respiratory Rate - - Oxygen Saturation - - Inhaled Oxygen Concentration - - Weight 59.9 kg (132 lb) 10/12/2020 12:51 PM EDT Height 170.2 cm (5' 7 ) 10/12/2020 12:51 PM EDT Body Mass Index 20.67 10/12/2020 12:51 PM EDT documented in this encounter Plan of Treatment Not on file documented as of this encounter Visit Diagnoses Not on filedocumented in this encounter Care Teams Commercial Baker Helper Relationship Specialty Start Date End Date Erica Lopez MD [address] [place] [address] [email or web address] PCP - General Family Medicine 09/19/20 03/25/22 Erica Lopez MD [address] [place] [address] [email or web address] PCP - General Family Medicine 03/26/22 Self-Referred, Patient Referring Physician 09/19/20 Cheyanne Devi MD, MPH [address] [place] [phone] [email or web address] u Medical Oncology 09/27/20 Gonzalo Troy MD [address] [place] [phone] [email or web address] Surgical Oncology 09/27/20 Sabrina Hidalgo MD [address] [place] [phone] [email or web address] Radiation Oncology 11/21/20 Sarah Porter PA-C [address] [place] [phone] [email or web address] Breast Surgery 11/22/20 Conchita Menezes MD [address] [place] [phone] Medical Oncology 11/22/20 documented as of this encounter Additional Source Comments The information contained in this document represents components of the legal health record. It is not the complete legal health record.[facility]
--- OUTSIDE RECORDS SUMMARY | 2025-05-19 20:09 | XMS_ITS | Encounter Summary ---
Author Organization [facility] Address [address] [place] [address] Phone Care Team Providers Care Hand Crown Pouncer Name Role Phone Erica Lopez MD Primary Care Provider [phone] Self-Referred, Patient Unavailable Unavailab Cheyanne Elliott MD, MPH Unavailable [phone] Gonzalo Troy MD Unavailable [phone] Sabrina Hidalgo MD Unavailable Sarah Porter PA-C Unavailable [phone] Conchita Menezes MD Unavailable [phone] Erica Lopez MD Primary Care Provider [phone] Reason for Referral * Outpatient Procedure - Closed Specialty Diagnoses / Procedures Referred By Silviano cortés Referred To Contact Radiology Diagnoses Malignant neoplasm of left female breast, unspecified estrogen receptor status, unspecified site of breast Procedures Mammogram Diagnostic Post Procedure (Left) Gonzalo Troy MD Phone: tel: fax: mailto:[email or web address] Referral ID Status Reason Start Date Expiration Date Visits Re quested Visits Authorized [id number] Closed 10/09/2020 10/09/2021 1 1 Encounter Details Date Type Department Care Team (Late st Contact Info) Description 10/09/2020 Ancillary Orders [facility] [address] [place] [address] [place] [address] Gonzalo Troy MD [address] [place] [address] [email or web address] Malignant neoplasm of left female breast, unspecified [...] documented as of this encounter Results * BI MAMMOGRAM DIAGNOSTIC POST PROCEDURE NO TOMOSYNTHESIS NO CAD (LEFT) (10/17/2020 10:11 AM EDT) Anatomical Region Laterality Modality Breast Left Left Mammography 10/17/2020 10:1 7 AM EDT Addenda Addendum by Wendie Cervantes, [facility] on 10/22/2020 9:54 AM EDT ADDENDUM: Core biopsy of left breast lower outer quadrant anterior depth enhancement: Pathology findings: PATIENT: ISAURO PIERRE INVASIVE LOBULAR CARCINOMA, moderately differentiated (modified Arias-Damon grade II/III: tubule score=3, nuclear score=2, mitoses score=1), measuring up to 0.4 cm. No lymphovascular invasion identified. No definite in situ carcinoma identified.. This result is: Malignant. Recommendation: Recommend surgical management. Communication of results: The patient has already been informed of the results as documented in the EHR. Impressions 10/17/2020 12:33 PM EDT Core biopsy of anterior extent of suspicious left lower outer non-mass enhancement (cork clip marker): Pathology findings: Pending and will be reported in an addendum. This result is: Pending and will be reported in an addendum. Recommendation: Pending and will be reported in an addendum. Communication of results: Pending. ATTESTATION: Wendie Cespedes, as teaching physician have reviewed the images, if any, for this patient's exam, and if necessary, have edited the report originally created by Brady Butler. Narrative 10/17/2020 12:33 PM EDT Reason for exam (per EHR order): Additional clinical information obtained from the EHR: 44-year-old female with newly diagnosed left breast invasive lobular carcinoma; prior MR imaging showed extensive left breast non-mass enhancement enhancement, MRI- guided core biopsy is recommended to determine the anterior extent of the disease involvement. Pertinent imaging studies and/or documents were reviewed. The patient identification and procedure were verified. The patient's known allergies, current medications and adverse medication reactions were reviewed. The procedure was explained to the patient, including benefits, risks, and alternatives, and written consent was obtained. A safety pause was observed immediately prior to the procedure. TECHNIQUE: The patient was placed prone in the MRI magnet in the usual fashion. Using a 3.0 Blaire magnet, dedicated breast coil and breast compression, preliminary sagittal and axial T1-weighted fat-suppressed images were obtained to confirm satisfactory positioning. IVCM: Administered. LEFT MRI-GUIDED CORE BIOPSY WITH MARKER: Following intravenous injection of gadolinium contrast, additional sagittal and axial images were obtained. The target lesion in the lower slightly outer left breast at anterior depth was identified and an appropriate skin entry site chosen for a lateral approach. The breast was prepped for the procedure using standard aseptic technique. Local anesthesia was achieved with injection of 2 cc of 2% lidocaine in the skin and superficial tissues followed by injection of 3 cc of 2% lidocaine to the deeper tissues. A coaxial sheath and obturator were advanced to the enhancing lesion. Repeat sagittal and axial images confirmed satisfactory positioning. Using 9-gauge standard vacuum-assisted directional biopsy device, multiple tissue samples were obtained. Post-biopsy sagittal and axial images demonstrated expected post-biopsy changes. An MRI compatible tissue marker was then deployed at the biopsy site through the coaxial sheath. CC and lateral digital mammographic views show the cork-shaped (cylindrical) marker in the expected location of the biopsy target in the lower central breast at anterior depth. I, Dr. Wendie Cervantes, the teaching physician, was present for the entire radiologic and lomeli portions of the procedure and was immediately available for the non-critical/lomeli portions, and have reviewed the images and agree with the report as written. The patient tolerated the procedure well. There were no immediate complications. Discharge instructions were reviewed and all patient questions were answered. The patient was discharged to home in good condition. Procedure Note Wendie Cervantes, [facility] - 10/17/2020 Reason for exam (per EHR order): Additional clinical information obtained from the EHR: 44-year-old female with newly diagnosed left breast invasive lobularcarcinoma; prior MR imaging showed extensive left breast non-massenhancement enhancement, MRI- guided core biopsy is recommended todetermine the anterior extent of the disease involvement. Pertinent imaging studies and/or documents were reviewed. The patientidentification and procedure were verified. The patient's known allergies,current medications and adverse medication reactions were reviewed. Theprocedure was explained to the patient, including benefits, risks, andalternatives, and written consent was obtained. A safety pause wasobserved immediately prior to the procedure. TECHNIQUE: The patient was placed prone in the MRI magnet in the usual fashion. Usinga 3.0 Blaire magnet, dedicated breast coil and breast compression,preliminary sagittal and axial T1-weighted fat-suppressed images wereobtained to confirm satisfactory positioning. IVCM: Administered. LEFT MRI-GUIDED CORE BIOPSY WITH MARKER: Following intravenous injection of gadolinium contrast, additionalsagittal and axial images were obtained. The target lesion in the lowerslightly outer left breast at anterior depth was identified and anappropriate skin entry site chosen for a lateral approach. The breast wasprepped for the procedure using standard aseptic technique. Localanesthesia was achieved with injection of 2 cc of 2% lidocaine in the skinand superficial tissues followed by injection of 3 cc of 2% lidocaine tothe deeper tissues. A coaxial sheath and obturator were advanced to theenhancing lesion. Repeat sagittal and axial images confirmed satisfactorypositioning. Using 9-gauge standard vacuum-assisted directional biopsydevice, multiple tissue samples were obtained. Post-biopsy sagittal andaxial images demonstrated expected post-biopsy changes. An MRI compatibletissue marker was then deployed at the biopsy site through the coaxialsheath. CC and lateral digital mammographic views show the cork-shaped(cylindrical) marker in the expected location of the biopsy target in thelower central breast at anterior depth. Dr. Wendie Cespedes, the teaching physician, was present for the entireradiologic and lomeli portions of the procedure and was immediately availablefor the non-critical/lomeli portions, and have reviewed the images and agreewith the report as written. The patient tolerated the procedure well. There were no immediatecomplications. Discharge instructions were reviewed and all patientquestions were answered. The patient was discharged to home in goodcondition. IMPRESSION: Core biopsy of anterior extent of suspicious left lower outer non- massenhancement (cork clip marker): Pathology findings: Pending and will be reported in an addendum. This result is: Pending and will be reported in an addendum. Recommendation: Pending and will be reported in an addendum. Communication of results: Pending. ATTESTATION: Wendie Cespedes, as teaching physician have reviewed theimages, if any, for this patient's exam, and if necessary, have edited thereport originally created by Brady Butler. Gonzalo Troy MD IMG MG EXAMS Edited Result - Final documented in this encounter Visit Diagnoses Diagnosis Malignant neoplasm of left female breast, unspecified estrogen receptor status, unspecified site of breast Malignant neoplasm of left female breast, unspecified estrogen receptor status, unspecified site of breast documented in this encounter Care Teams Hand Crown Pouncer Relationship Specialty Start Date End Date Erica Lopez MD [address] [place] [address] [email or web address] PCP - General Family Medicine 09/19/20 03/25/22 Erica Lopez MD [address] [place] [address] [email or web address] PCP - General Family Medicine 03/26/22 Self-Referred, Patient Referring Physician 09/19/20 Cheyanne Devi MD, MPH [address] [place] [address] [email or web address] 09/27/20 Gonzalo Troy MD [address] [place] [address] [email or web address] 09/27/20 Sabrina Hidalgo MD [address] [place] [address] [email or web address] Radiation Oncology 11/21/20 Sarah Porter PA-C [address] [place] [phone] [email or web address] Breast [email or web address] 11/22/20 Conchita Menezes MD [address] [place] [address] [place] [address] Medical Oncology 11/22/20 documented as of this encounter Additional Source Comments The information contained in this document represents components of the legal health record. It is not the complete legal health record.[facility]
--- OUTSIDE RECORDS SUMMARY | 2025-05-19 20:09 | XMS_ITS | Clinical Summary ---
Author Organization [facility] Address [address] [place] [address] Care Team Providers Care Ash Pit Worker Name Role Phone Erica Lopez MD Primary Care Provider [phone] Allergies Active Allergy Reactions Criticality Noted Date Comments Erythromycin Hives 06/15/2023 Penicillins Hives 06/15/2023 Metoclopramide Hcl Agitation 06/15/2023 And delusions Medications anastrozole (ARIMIDEX) 1 mg tablet Take 1 mg by mouth every night. Active oxybutynin (DITROPAN) 5 mg tablet Take 1 tablet by mouth 2 times a day. Active zoledronic acid (ZOMETA INTRAVENOU) Infuse intravenously. Every 6 months Active venlafaxine XR (EFFEXOR XR) 150 mg capsuleIndica tions:Anxiety Take 1 capsule (150 mg total) by mouth once a day. 90 capsule 3 10/03/19 25 Active LORazepam (ATIVAN) 0.5 mg tabletIndicat ions:Anxiety Take 1 tablet (0.5 mg total) by mouth 2 times a day as needed for anxiety. 20 tablet 1 10/03/19 25 Active cholecalcifer ol (VITAMIN D3) 2,000 unit tablet Take 1 tablet by mouth once a day. Active CALCIUM 26-MAGNESIUM 15-ZINC ORAL Take by mouth. Ac tive ascorbic acid (VITAMIN C) 500 mg tablet Take 500 mg by mouth once a day. Active folic acid (FOLVITE) 1 mg tablet Take 1 mg by mouth once a day. 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 She had ordered a sleep medicine consult. Patient has not heard back yet I encouraged her to check with her neurologist to follow-up on that. We can order a home sleep study. [place] was completed in the office today we will follow-up with her pending those results. Orders: Home sleep test ([place]); Future Gastritis 08/10/2024 Overview (08/10/2024): By EGD 08/09/24--bx taken Cognitive impairment 06/28/2024 Word finding difficulty 06/28/2024 Postmenopausal bleeding 06/19/2024 Assessment & Plan (09/08/2024 9:31 AM EST): Hysteroscopy revealed an atrophic endometrium with an arcuate/septate uterus. Pathology benign. Findings were reviewed with the patient. She will contact the office if she experiences any future vaginal spotting/bleeding. Memory loss 11/24/2023 Allergic rhinitis 06/18/2023 Menopausal symptoms 06/18/2023 Anxiety 06/18/2023 Assessment & Plan (02/03/2025 8:34 AM EDT): The impression is generalized anxiety disorder. Currently, the condition is improving and responding to treatment. There are no changes in medication management. The plan was discussed with the patient. She will follow-up here for her physical as scheduled, sooner as needed. Assessment & Plan (10/02/2024 5:45 PM EDT): Patient has a longstanding history of anxiety. It seems that the episode she had could have been a panic attack. It is of an unclear etiology. Could have been a migraine equivalent, it could have been due to the release of stress from being away from work. The only residual she is feeling is some jaw tension. She will continue to observe the situation. She will continue with the Effexor XR 150 mg daily. I will also give her some lorazepam to use as needed when she feels the panic attacks coming on. She was advised to contact the office if her symptoms worsen or do not improve. Orders: venlafaxine XR (EFFEXOR XR) 150 mg capsule; Take 1 capsule (150 mg total) by mouth once a day. LORazepam (ATIVAN) 0.5 mg tablet; Take 1 tablet (0.5 mg total) by mouth 2 times a day as needed for anxiety. Migraines 09/28/2020 Headache Resolved Problems Problem Noted Date Diagnosed Date Resolved Date Joint pain 04/11/2024 02/02/2025 Pain of right lower extremity 12/07/2023 02/02/2025 Health maintenance examination 07/05/2023 08/21/2024 Active advance directive 06/18/2023 Invasive lobular carcinoma o f left breast in female 06/18/2023 07/05/2023 Encounters Date Type Department Care Team Description 05/18/2025 2:30 PM EDT Office Visit [address] [employer] Department [address] [place] [phone] Nina Alvarenga MD Women's annual routine gynecological examination (Primary Dx) from Last 3 Months Immunizations Immunization Administration Dates Next Due Covid-19 Vaccine, J&J, Vector-nr, Rs-ad26, PF, 0 .5 mL 2020 INFLUENZA, SPLIT VIRUS, TRIVALENT, PF 07/07/2024 Influenza, Injectable, Madin [place] Canine Kidney, Quadrivalent 04/21/2017 Influenza, Injectable, Madin [place] Canine Kidney, Preservative Free, Quadrivalent 06/07/2020,05/28/2018 Influenza, Injectable, Quadr ivalent, Contains Preservative 04/27/2019 Influenza, Injectable, Quadrivalent, Preservativ e Free 07/05/2023,04/27/2019 Influenza, Quadrivalent, Recombinant, Injectable , PF 06/29/2022,06/26/2021 Pneumococcal Conjugate Vaccine, 13 Valent 2020 Pneumococcal Polysaccharide Vaccine, 23 Valent 0 02/21/2021 Tetanus Toxoid, Reduced Diph theria Toxoid, and Acellular Pertussis Vaccine, Adsorbed 12/20/2009 Tetanus and Diphtheria Toxoi ds, Adsorbed, Preservative Free (2 Lf of Tetanus Toxoid and 2 Lf of Diphtheria Toxoid) 02/23/2023 Family History Medical History Relation Name Comments Asthma Brother Polo Lung disease Father copd, long covi d; of covid complications and copd Parkinsonism Father's Brother motor and d ementia Alcohol abuse Maternal Grandfather Grandfather Diabetes Maternal Grandfather Grandfather Hepatitis Mother abnormally smal ler liver was not able to digest food, got hepatis A from [place] and when pt was 11 Alzheimer's disease Mother's Brother Alzheimer's disease Paternal Grandmother Brain cancer Neg Hx Breast cancer Neg Hx Cervical cancer Neg Hx Colon cancer Neg Hx Endometrial cancer Neg Hx Multiple sclerosis Neg Hx Osteoporosis Neg Hx Ovarian cancer Neg Hx Seizures Neg Hx Stroke Neg Hx Relation Name Status Comments Brother Polo Father Father's Brother Maternal Grandfather Grandfather Mother Mother's Brother Paternal Grandmother Social History Tobacco Use Types Packs/Day Years Used Date Smoking Tobacco: Former Cigarettes 0.5 6 0 07/19/1996 - 2002 Smokeless Tobacco: Never Alcohol Use Standard Drinks/Week Comments Yes 0 (1 standard drink = 0.6 oz pure alcohol) Social drinker 1-2 a month or less [facility] Utilities Answer Date Recorded In the past 12 months has e [employer], oil, or water [employer] threatened to shut off services in your [...] Orientation Straight 07/05/2023 9: 22 AM EST Last Filed Vital Signs Vital Sign Reading Time Taken Comments Blood Pressure 108/72 05/18/2025 2:23 PM EDT Pulse 94 02/02/2025 3:04 PM EDT Temperature 36.3 C (97.3 F) 02/02/2025 3:04 PM EDT Respiratory Rate 16 10/02/2024 2:46 PM EDT Oxygen Saturation 96% 02/02/2025 3:04 PM EDT Inhaled Oxygen Concentration - - Weight 58.1 kg (128 lb) 05/18/2025 2:23 PM EDT Height 170.2 cm (5' 7 ) 05/18/2025 2:23 PM EDT Body Mass Index 20.05 05/18/2025 2:23 PM EDT Plan of Treatment Upcoming Encounters Date Type Department Care Team (Late st Contact Info) Description 07/10/2025 8:45 AM EST Office Visit [address] Family Practice Department [address] [place] [phone] Erica Lopez MD [address] [place] [address] [address] [place] [address] 08/31/2025 11:00 AM EST Follow-Up [facility] Neurology [address] [place] [address] Brionna Vyas MD [address] [place] [address] 12/18/2025 2:30 PM EDT Appointment [facility] Neurodiagnostics [address] [place] [address] Brionna Vyas MD [address] [place] [address] Marco Jose MD [address] [place] [address] Aj Kendrick 05/24/2026 2:00 PM EST Office Visit [address] [employer] Department [address] [place], [place] [address] [place] [phone] Nina Alvarenga MD [address] [place] [address] Health Maintenance Due Date Last Done Comments Cologuard 1974 FOBT / Fit Test 1974 HPV and Pap Smear 1974 Sigmoidoscopy 1974 Influenza Vaccine (#1) 2025 , 07/05/2023, 06/29/2022, Additional history exists Social Drivers of Health Annual Screening 10/02/2025 10/02/2024 Depression Screening and Follow-Up 02/02/2026 02/02/2025 Zoster Vaccines (1 of 2) 02/02/2026 Pos tponed from 2024 (Other Medical Reason) Pneumococcal Vaccine: 50+ Years (3 of 3 - PCV20 or PCV21) 02/21/2026 02/21/2021, 12/20/2020 Cervical Cancer Screening 04/08/2026 Pap Smear 04/08/2026 04/08/2021 Colon Cancer Screening 11/04/2032 Colonoscopy 11/04/2032 11/04/2022, 10/28/2022 DTaP,Tdap,and Td Vaccines (3 - Td or Tdap) 02/23/2033 02/23/2023, 12/20/2009 RSV Vaccine (60+ years old and patients) (1 - 1-dose 75+ series) 2049 HIV Screening Addressed 07/24/2012 Overridden wit h the intention of not completing the topic COVID-19 Vaccine Discontinued 2020, 10/04/2020 Hepatitis C Screening Completed 12/07/2023 Alcohol/Substance Use Screening Completed 01/27/2025 Hepatitis B Vaccines Discontinued Procedures * Due to [place] [employer] law, this organization might not be sharing negative HIV tests. Procedure Name Priority Date/Time Associated Diagnosis Comments PROCEDURE - SCANNED 04/03/2025 HEPATITIS C ANTIBODY W/REFLEX TO HCV RNA, QUANTITATIVE PCR Routine 12/07/2023 12:28 PM EDT Need for hepatitis C screening test HM COLONOSCOPY 11/04/2022 10:05 AM EDT from Last 3 Months or Most Recently Relevant to Health Maintenance Results * Due to [place] [employer] law, this organization might not be sharing negative HIV tests. * PROCEDURE - SCANNED (04/03/2025) us Onbase Scan [facility] SCANNED PROCEDURES Final Resu lt * Hepatitis C Antibody w/Reflex to HCV RNA, Quantitative PCR (12/07/2023 12:28 PM EDT) Hepatitis C Antibody Interpretation Nonreactive Nonreactive 12/07/2023 7:20 PM EDT [facility] Blood Structure of peripheral vein / Unknown Venipuncture / Unknown 12/07/2023 12:28 PM EDT 12/07/2023 1:04 PM EDT us Erica Lopez MD LAB BLOOD ORDERABLES Mer [employer] Result [facility] [address] [place] [address], [place] [phone] * HM Colonoscopy (11/04/2022 10:05 AM EDT) us Onbase Scan [facility] HEALTH MAINTENANCE Final Resu lt from Last 3 Months or Most Recently Relevant to Health Maintenance Insurance H[employer] Advance Directives Documents on File Type Date Recorded Patient Scientific Manager Expl anation Health Care Proxy 07/16/2021 Health Care Proxy 07/16/2021 Health Care Proxy 07/16/2021 Health Care Proxy 07/16/2021 Advance Directive 07/07/2021 4:33 PM * Full Code (Latest Code Status on File) Date Activated Date Inactivated Comments 08/25/2024 7:03 AM 08/25/2024 1:17 PM Care Teams Ash Pit Worker Relationship Specialty Start Date End Date Erica Lopez MD [address] [place] [address] [address] [place] [address] PCP - General 02/04/17
--- OUTSIDE RECORDS SUMMARY | 2025-05-19 20:09 | XMS_ITS | Encounter Summary ---
Author Organization [facility] Address [address] [place] [phone] Phone Care Team Providers Care Recruiting Team Lead Name Role Phone Erica Lopez MD Primary Care Provider [phone] Self-Referred, Patient Unavailable Unavailab Cheyanne Elliott MD, MPH Unavailable [phone] Gonzalo Troy MD Unavailable [phone] Sabrina Hidalgo MD Unavailable Sarah Porter PA-C Unavailable [phone] Conchita Menezes MD Unavailable [phone] Erica Lopez MD Primary Care Provider [phone] Encounter Details Date Type Department Care Team (Late st Contact Info) Description 02/18/2022 Procedure Pass [facility] Periop [address] [place] [address] Social History Tobacco Use Types Packs/Day Years [...] on filedocumented in this encounter Care Teams Recruiting Team Lead Relationship Specialty Start Date End Date Erica Lopez MD [address] [place] [address] [email or web address] PCP - General Family Medicine 09/19/20 03/25/22 Erica Lopez MD [address] [place] [address] [email or web address] PCP - General Family Medicine 03/26/22 Self-Referred, Patient Referring Physician 09/19/20 Cheyanne Devi MD, MPH [address] [place] [phone] [email or web address] Medical Oncology 09/27/20 Gonzalo Troy MD [address] [place] [address] [email or web address] 09/27/20 Sabrina Hidalgo MD [address] [place] [phone] [email or web address] Radiation Oncology 11/21/20 Sarah Porter PA-C [address] [place] [phone] [email or web address] Breast Surgery 11/22/20 Conchita Menezes MD [address] [place] [phone] Medical Oncology 11/22/20 documented as of this encounter Additional Source Comments The information contained in this document represents components of the legal health record. It is not the complete legal health record.[facility]
--- OUTSIDE RECORDS SUMMARY | 2025-05-19 20:09 | XMS_ITS | Encounter Summary ---
Author Organization [facility] Address [address] [place] [address] Phone Care Team Providers Care Patent Engineer Name Role Phone Erica Lopez MD Primary Care Provider [phone] Self-Referred, Patient Unavailable Unavailab Cheyanne Elliott MD, MPH Unavailable Gonzalo Troy MD Unavailable [phone] Sabrina Hidalgo MD Unavailable Sarah Porter PA-C Unavailable [phone] Conchita Menezes MD Unavailable Erica Lopez MD Primary Care Provider [phone] Encounter Details Date Type Department Care Team (Late st Contact Info) Description 09/27/2020 Transcribe Orders [facility] Radiology Department [address] [facility] [id number] [place] [address] Gonzalo Troy MD [address] [place] [address] [email or web address] Follow-up exam (Primary Dx) Social History Tobacco Use Types [...] as of this encounter Visit Diagnoses Diagnosis Follow-up exam- Primary Unspecified follow-up examination documented in this encounter Care Teams Patent Engineer Relationship Specialty Start Date End Date Erica Lopez MD [address] [place] [phone] [email or web address] PCP - General Family Medicine 09/19/20 03/25/22 Erica Lopez MD [address] [place] [address] [email or web address] PCP - General Family Medicine 03/26/22 Self-Referred, Patient Referring Physician 09/19/20 Cheyanne Devi MD, MPH [address] [place] [address] [email or web address] u Medical Oncology 09/27/20 Gonzalo Troy MD [address] [place] [address] [email or web address] Surgical Oncology 09/27/20 Sabrina Hidalgo MD [address] [place] [address] [email or web address] Radiation Oncology 11/21/20 Sarah Porter PA-C [address] [place] [id number] [email or web address] du Breast Surgery 11/22/20 Conchita Menezes MD [address] [place] [address] [place] [address] Medical Oncology 11/22/20 documented as of this encounter Additional Source Comments The information contained in this document represents components of the legal health record. It is not the complete legal health record.[facility]
--- OUTSIDE RECORDS SUMMARY | 2025-05-19 20:09 | XMS_ITS | Clinical Summary ---
Author Organization [facility] Address [address] [place] [address] Care Team Providers Care Capital Campaign Fundraiser Name Role Phone Unavailable Primary Care Provider Unavailabl e Social History Tobacco Use Types Packs/Day Years Used Date Smoking Tobacco: Never Assessed Comments Unknown Sex and Gender Information Value Date Recorded Sex Assigned at Not on file Legal Sex Female 12:26 PM EST Gender Identity Not on file Sexual Orientation Not on file Plan of Treatment Health Maintenance Due Date Last Done Comments Pap Smear 1990 DTaP/Tdap/Td (1 - Tdap) 1992 Hep B (1 of 3 - 19+ 3-dose series) 1993 Colon Cancer Screening 11/02/2019 Mammogram/Breast Imaging 10/17/2021 10/17/2020, 09/16 Pneumococcal 50+ years (1 of 1 - PCV) 2024 Zoster (Shingrix) (1 of 2) 2024 COVID-19 Vaccine (3 - 2024- season) 2025 2020, 10/04/2020 Influenza (#1) 2025 07/07/2024, 06/18, 06/29/2022, Additional history exists Chest Imaging Discontinued 10/03/2012 Hepatitis C Screening Completed 12/07/2023 HPV Vaccine (No Doses Required) Completed Hep A Aged Out No longer eligi ble based on patient's age to complete this topic Hib Aged Out No longer eligi ble based on patient's age to complete this topic Meningococcal ACWY Aged Out No longer eligible based on patient's age to complete this topic Insurance [employer] Member Subscriber Plan / Payer (Ef fective 2020-Present) Name:Jasmin Pierre Relation to Subscriber:Spouse Name:JOELLEN PIERRE Date of :1972 (Home) Address: [address] [place] [address] [place] [address] Payer ID:[id number] (NAIC) Group ID:[id number] Type:HMO Address: [facility] [id number] [place] [address]
--- OUTSIDE RECORDS SUMMARY | 2025-05-19 20:09 | XMS_ITS | Encounter Summary ---
Author Organization [facility] Address [address] [place] [address] Phone Care Team Providers Care Film Or Videotape Editor Name Role Phone Erica Lopez MD Primary Care Provider [phone] Self-Referred, Patient Unavailable Unavailab Cheyanne Elliott MD, MPH Unavailable [phone] Gonzalo Troy MD Unavailable [phone] Sabrina Hidalgo MD Unavailable Sarah Porter PA-C Unavailable [phone] Conchita Menezes MD Unavailable Erica Lopez MD Primary Care Provider [phone] Encounter Details Date Type Department Care Team (Late st Contact Info) Description 11/05/2020 Procedure Pass [facility] Periop [address] [place] [address] Social History Tobacco Use Types Packs/Day Years [...] on filedocumented in this encounter Care Teams Film Or Videotape Editor Relationship Specialty Start Date End Date Erica Lopez MD [address] [place] [phone] [email or web address] PCP - General Family Medicine 09/19/20 03/25/22 Erica Lopez MD [address] [place] [address] [email or web address] PCP - General Family Medicine 03/26/22 Self-Referred, Patient Referring Physician 09/19/20 Cheyanne Devi MD, MPH [address] [place] [address] [email or web address] Medical Oncology 09/27/20 Gonzalo Troy MD [address] [place] [address] [email or web address] 09/27/20 Sabrina Hidalgo MD [address] [place] [address] [email or web address] Radiation Oncology 11/21/20 Sarah Porter PA-C [address] [place] [phone] [email or web address] Breast Surgery 11/22/20 Conchita Menezes MD [address] [place] [phone] Medical Oncology 11/22/20 documented as of this encounter Additional Source Comments The information contained in this document represents components of the legal health record. It is not the complete legal health record.[facility]
--- OUTSIDE RECORDS SUMMARY | 2025-05-19 20:09 | XMS_ITS | Encounter Summary ---
Author Organization [facility] Address [address] [place] [address] Phone Care Team Providers Care Java Programmer Name Role Phone Erica Lopez MD Primary Care Provider [phone]- [phone] Self-Referred, Patient Unavailable Unavailab Cheyanne Elliott MD, MPH Unavailable [phone] Gonzalo Troy MD Unavailable [phone] Sabrina Hidalgo MD Unavailable [phone] Sarah Porter PA-C Unavailable [phone] Conchita Menezes MD Unavailable [phone] Erica Lopez MD Primary Care Provider [phone] Encounter Details Date Type Department Care Team (Late st Contact Info) Description 09/30/2020 Procedure [place] [facility] [address] [place] [address] Social History Tobacco Use Types Packs/Day Years [...] on filedocumented in this encounter Care Teams Java Programmer Relationship Specialty Start Date End Date Erica Lopez MD [address] [place] [address] [email or web address] PCP - General Family Medicine 09/19/20 03/25/22 Erica Lopez MD [address] [place] [address] [email or web address] PCP - General Family Medicine 03/26/22 Self-Referred, Patient Referring Physician 09/19/20 Cheyanne Devi MD, MPH [address] [place] [address] [email or web address] Medical Oncology 09/27/20 Gonzalo Troy MD [address] [place] [address] [email or web address] Surgical [email or web address] 09/27/20 Sabrina Hidalgo MD [address] [place] [address] [email or web address] Radiation Oncology 11/21/20 Sarah Porter PA-C [address] [place] [phone] [email or web address] Breast Surgery 11/22/20 Conchita Menezes MD [address] [place] [address] Medical Oncology 11/22/20 documented as of this encounter Additional Source Comments The information contained in this document represents components of the legal health record. It is not the complete legal health record.[facility]
--- OUTSIDE RECORDS SUMMARY | 2025-05-19 20:09 | XMS_ITS ---
[facility] Name [facility] Unknown History of Medication Use Medication Directions Dispensed Refills Start Date End Date Stat lidocaine (PF) 100 mg/5 mL (2 %) injection syringe Take 3 mL by injection route. 01/17/2025 active triamcinolone acetonide 40 mg/mL suspension for injection Take 60 mg by injection route. 01/17/2025 active lidocaine (PF) 100 mg/5 mL (2 %) injection syringe active triamcinolone acetonide 40 mg/mL suspension for injection active anastrozole 1 mg tablet TAKE 1 TABLET BY MOUTH EVERY DAY active lorazepam 0.5 mg tablet TAKE 1 TABLET BY MOUTH 2 TIMES A DAY NEEDED FOR ANXIETY. active Miebo (PF) 100 % eye drops INSTILL ONE DROP INTO BOTH EYES FOUR TIMES DAILY . BOTTLE PREPARATION IS REQUIRED. REFER TO PACKAGE INSERT FOR SPECIAL PREPARATION AND ADMIN active misoprostol 200 mcg tablet INSERT 1 TABLET IN VAGINA ONCE THE NIGHT BEFORE SURGERY - NOT TO BE TAKEN ORALLY active naproxen 500 mg tablet TAKE 1 TABLET BY MOUTH TWICE A DAY WITH FOOD FOR 10 DAYS active oxybutynin chloride 5 mg tablet TAKE 1/2 TABLET BY MOUTH TWICE A DAY active oxycodone-acetaminop hen 5 mg-325 mg tablet TAKE 1 TABLET BY MOUTH EVERY 4 HOURS FOR 2 DAYS NEEDED FOR MODERATE PAIN active venlafaxine ER 150 mg capsule,extended release 24 hr TAKE 1 CAPSULE (150 MG) BY MOUTH DAILY active venlafaxine ER 75 mg tablet,extended release 24 hr TAKE 1 TABLET BY MOUTH EVERY DAY active Encounters Encounter Type Encounter Reason Primary Diagnosis Location Date Ambulatory [facility] [place] 01/22/2025 Ambulatory [facility] [place] 01/17/2025 [facility] [place] 01/17/2025 [facility] [place] 01/17/2025 [facility] [place] 01/17/2025 [facility] [place] 09/23/2022
--- OUTSIDE RECORDS SUMMARY | 2025-05-19 20:09 | XMS_ITS | Data Portability ---
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 Jasmin Pierre OBGyn Episode No OBEpisode recorded.
--- OUTSIDE RECORDS SUMMARY | 2025-05-19 20:09 | XMS_ITS | Encounter Summary ---
Author Organization [facility] Address [address] [place] [address] Phone Care Team Providers Care Death Clearance Coordinator Name Role Phone Erica Lopez MD Primary Care Provider [phone] Self-Referred, Patient Unavailable Unavailab Cheyanne Elliott MD, MPH Unavailable [phone] Gonzalo Troy MD Unavailable [phone] Sabrina Hidalgo MD Unavailable Sarah Porter PA-C Unavailable [phone] Conchita Menezes MD Unavailable [phone] Erica Lopez MD Primary Care Provider [phone] Encounter Details Date Type Department Care Team (Late st Contact Info) Description 12/16/2021 Procedure Pass [facility] Periop [address] [place] [address] Social History Tobacco Use Types Packs/Day Years [...] on filedocumented in this encounter Care Teams Death Clearance Coordinator Relationship Specialty Start Date End Date Erica Lopez MD [address] [place] [address] [email or web address] PCP - General Family Medicine 09/19/20 03/25/22 Erica Lopez MD [address] [place] [address] [email or web address] PCP - General Family Medicine 03/26/22 Self-Referred, Patient Referring Physician 09/19/20 Cheyanne Devi MD, MPH [address] [place] [address] [email or web address] Medical Oncology 09/27/20 Gonzalo Troy MD [address] [place] [address] [email or web address] Surgical Oncology 09/27/20 Sabrina Hidalgo MD [address] [place] [address] [email or web address] Radiation Oncology 11/21/20 Sarah Porter PA-C [address] [place] [phone] [email or web address] du Breast Surgery 11/22/20 Conchita Menezes MD [address] [place] [address] Medical Oncology 11/22/20 documented as of this encounter Additional Source Comments The information contained in this document represents components of the legal health record. It is not the complete legal health record.[facility]
--- OUTSIDE RECORDS SUMMARY | 2025-05-19 20:09 | XMS_ITS | Encounter Summary ---
Author Organization [facility] Address [address] [place] [address] Phone Care Team Providers Care Air Compressor Engineer Name Role Phone Erica Lopez MD Primary Care Provider [phone] Self-Referred, Patient Unavailable Unavailab Cheyanne Elliott MD, MPH Unavailable [phone] Gonzalo Troy MD Unavailable [phone] Sabrina Hidalgo MD Unavailable [phone] Sarah Porter PA-C Unavailable [phone] Conchita Menezes MD Unavailable [phone] Erica Lopez MD Primary Care Provider [phone] Encounter Details Date Type Department Care Team (Late st Contact Info) Description 10/03/2021 Procedure Pass [facility], Mammography, [facility] Imaging Department [address] [place] [address] Social History Tobacco Use Types Packs/Day Years [...] on filedocumented in this encounter Care Teams Air Compressor Engineer Relationship Specialty Start Date End Date Erica Lopez MD [address] [place] [address] [email or web address] PCP - General Family Medicine 09/19/20 03/25/22 Erica Lopez MD [address] [place] [address] [email or web address] PCP - General Family Medicine 03/26/22 Self-Referred, Patient Referring Physician 09/19/20 Cheyanne Devi MD, MPH [address] [place] [address] [email or web address] Medical Oncology 09/27/20 Gonzalo Troy MD [address] [place] [address] [email or web address] Surgical Oncology 09/27/20 Sabrina Hidalgo MD [address] [place] [address] [email or web address] Radiation Oncology 11/21/20 Sarah Porter PA-C [address] [place] [phone] [email or web address] Breast Surgery 11/22/20 Conchita Menezes MD [facility] [place] [address] Medical Oncology 11/22/20 documented as of this encounter Additional Source Comments The information contained in this document represents components of the legal health record. It is not the complete legal health record.[facility]
--- OUTSIDE RECORDS SUMMARY | 2025-05-19 20:09 | XMS_ITS | Clinical Summary ---
[place] [address] Care Team Providers Care Log Getter Name Role Phone Unavailable Primary Care Provider Unavailabl e Social History Tobacco Use Types Packs/Day Years Used Date Smoking Tobacco: Never Assessed Comments Unknown Sex and Gender Information Value Date Recorded Sex Assigned at Not on file Legal Sex Female 1:30 PM EDT Gender Identity Not on file Sexual Orientation Not on file Plan of Treatment Health Maintenance Due Date Last Done Comments CT Colonography 1974 Colonoscopy 1974 Colorectal Cancer Screening 1974 FIT DNA 1974 FIT 1974 Sigmoidoscopy (10 year) with FIT yearly 1974 Sigmoidoscopy 1974 HIV screen 1992 Hepatitis C Screening 1992 Hepatitis B vaccine (0-59 yrs) and Risk (1) 1993 Tetanus/Diphtheria/Pertussis Vaccines (1 - Tdap) 11/01 HPV test 2004 PAP Smear 2004 Breast Cancer Share Decision Needed 2014 Breast Cancer screening 2014 Pneumoccocal Vaccine: 50+ (1 of 1 - PCV) 2024 Zoster vaccine (1 of 2) 2024 Covid-19 Vaccine (1 - 2024- season) 2025 Influenza (Flu) vaccine (1 o f 1 - Influenza standard series) 03/19/2025 Insurance FIDELINA ZAMORA
--- OUTSIDE RECORDS SUMMARY | 2025-05-19 20:09 | XMS_ITS | Encounter Summary ---
Author Organization [facility] Address [address] [place] [address] Phone Care Team Providers Care Communications Advisor Name Role Phone Self-Referred, Patient Unavailable Unavailab Cheyanne Elliott MD, MPH Unavailable [phone] Gonzalo Troy MD Unavailable [phone] Sabrina Hidalgo MD Unavailable [phone] Sarah Porter PA-C Unavailable [phone] Conchita Menezes MD Unavailable Erica Lopez MD Primary Care Provider [phone] Encounter Details Date Type Department Care Team (Late st Contact Info) Description 03/15/2023 Procedure Pass [facility] Periop [address] [place] [address] Social History Tobacco Use Types Packs/Day Years Used Date Smoking Tobacco: Former Smokeless Tobacco: Never Comments:Smoked for 6-7 year s in her 20s. Alcohol Use Standard Drinks/Week Comments Yes 0 (1 standard drink = 0.6 oz pur e alcohol) socially Education Answer Date Recorded Are you interested in more education? Not on gregor e 11/12/2022 Are you concerned about learning? Not on file 11/12/2022 No 11/12/2022 No 11/12/2022 Digital Access Answer Date Recorded No 12/09/2022 No 12/09/2022 Reliable internet access at home? Not on file 12/09/2022 Device with a working camera? Not on file Intimate Partner Violence Answer Date R ecorded Denied Basic Needs Not on file 03/15/2023 In the past 12 months have y ou been in a relationship with a person who hurts, threatens, or tries to control you? No 03/15/2023 Worried food would run out Not on file 03/15 In the past 12 months have y ou been in a relationship with a person who hurts, threatens, or tries to control you? No 03/15/2023 Comments No Sex and Gender Information Value [...] on filedocumented in this encounter Care Teams Communications Advisor Relationship Specialty Start Date End Date Erica Lopez MD [address] [place] [address] [email or web address] PCP - General Family Medicine 03/26/22 Self-Referred, Patient Referring Physician 09/19/20 Cheyanne Devi MD, MPH [address] [place] [address] [email or web address] u Medical Oncology 09/27/20 Gonzalo Troy MD [address] [place] [address] [email or web address] Surgical Oncology 09/27/20 Sabrina Hidalgo MD [address] [place] [address] [email or web address] Radiation Oncology 11/21/20 Sarah Porter PA-C [address] [place] [phone] [email or web address]. du Breast Surgery 11/22/20 Conchita Menezes MD [address] [place] [address] [place] [address] Medical Oncology 11/22/20 documented as of this encounter Additional Source Comments The information contained in this document represents components of the legal health record. It is not the complete legal health record.[facility]
--- OUTSIDE RECORDS SUMMARY | 2025-05-19 20:09 | XMS_ITS | Clinical Summary ---
Author Organization [facility] Address [address] [place] [address] Care Team Providers Care Labourers Name Role Phone Erica Lopez MD Primary Care Prov ider Allergies Active Allergy Reactions Criticality Noted Date Comments Erythromycin 04/12/2020 Medications Medication Sig Dispensed Refills Start Date End Date Status cetirizine (ZyrTEC) 10 MG tablet Take 10 mg by mouth daily. 0 Active Diclofenac Sodium 1 % GEL topical Place onto the skin. 0 Active meloxicam (MOBIC) 15 MG tablet Take 15 mg by mouth daily. 0 02/12/2020 Active oxyCODONE-acetaminop hen (Percocet) 5-325 MG per tablet Take 1 tablet by mouth every 4 to 6 hours as needed for pain. Do not drive or operate machinery while on narcotic pain medication. 10 tablet 0 06/18/2020 Active ondansetron (Zofran) 4 MG tablet Take 1 tablet by mouth every 6-8 hours as needed for nausea 20 tablet 0 06/18/2020 Active Family History Medical History Relation Name Comments Hyperlipidemia Father Relation Name Status Comments Father Social History Tobacco Use Types Packs/Day Years Used Date Smoking Tobacco: Former Cigarettes 1 997 - 2003 Smokeless Tobacco: Never Alcohol Use Standard Drinks/Week Comments Yes 1 (1 standard drink = 0.6 oz pur e alcohol) Sex and Gender Information Value Date Recorded Sex Assigned at Female 04/12/2020 12:57 PM EDT Gender Identity Female 04/12/2020 12:57 PM EDT Sexual Orientation Not on file Last Filed Vital Signs Vital Sign Reading Time Taken Comments Blood Pressure - - Pulse - - Temperature - - Respiratory Rate - - Oxygen Saturation - - Inhaled Oxygen Concentration - - Weight 61.1 kg (134 lb 12.8 oz) 020 11:43 AM EDT Height 172.7 cm (5' 8 ) 04/12/2020 11:4 3 AM EDT Body Mass Index 20.5 04/12/2020 11:43 AM EDT Plan of Treatment Health Maintenance Due Date Last Done Comments Hepatitis B Vaccines (1 of 3 - 3-dose series) 1974 Hepatitis C Screening 1974 COVID-19 Vaccine (#1) 05/03/1975 Depression Screening 1986 Preventative Health Evaluation 1992 DTap / Tdap / Td (1 - Tdap) 1993 Cervical Cancer Screening (P ap Smear) 11/02/1995 Colon Cancer Screening (Colonoscopy) 11/02/2019 Breast Cancer Screening (Mammogram) 2024 Shingrix-Zoster Vaccine (1 of 2) 2024 Influenza Vaccine (#1) 2025 05/28/2018 Pneumococcal Vaccine Aged Out No long er eligible based on patient's age to complete this topic RSV Ped < 20 months Aged Out No longe r eligible based on patient's age to complete this topic Care Teams Labourers Relationship Specialty Start Date End Date Erica Lopez MD [address] [place] [address] [address] [place] [phone] PCP - General Family Medicine 04/12/20
--- OUTSIDE RECORDS SUMMARY | 2025-05-19 20:09 | XMS_ITS | Encounter Summary ---
Author Organization [facility] Address [address] [place] [address] Phone Care Team Providers Care Oracle Solutions Architect Name Role Phone Erica Lopez MD Primary Care Provider [phone] Self-Referred, Patient Unavailable Unavailab Cheyanne Elliott MD, MPH Unavailable [phone] Gonzalo Troy MD Unavailable [phone] Sabrina Hidalgo MD Unavailable [phone] Sarah Porter PA-C Unavailable [phone] Conchita Menezes MD Unavailable Erica Lopez MD Primary Care Provider [phone] Encounter Details Date Type Department Care Team (Late st Contact Info) Description 03/25/2021 Procedure Pass [facility] Periop [address] [place] [address] Social History Tobacco Use Types Packs/Day Years [...] on filedocumented in this encounter Care Teams Oracle Solutions Architect Relationship Specialty Start Date End Date Erica Lopez MD [address] [place] [address] [email or web address] PCP - General Family Medicine 09/19/20 03/25/22 Erica Lopez MD [address] [place] [address] [email or web address] PCP - General Family Medicine 03/26/22 Self-Referred, Patient Referring Physician 09/19/20 Cheyanne Devi MD, MPH [address] [place] [address] [email or web address] Medical Oncology 09/27/20 Gonzalo Troy MD [address] [place] [address] [email or web address] Surgical Oncology 09/27/20 Sabrina Hidalgo MD [address] [place] [address] [email or web address] Radiation Oncology 11/21/20 Sarah Porter PA-C [address] [place] [phone] [email or web address] Breast Surgery 11/22/20 Conchita Menezes MD [address] [place] [address] Medical Oncology 11/22/20 documented as of this encounter Additional Source Comments The information contained in this document represents components of the legal health record. It is not the complete legal health record.[facility]
--- OUTSIDE RECORDS SUMMARY | 2025-05-19 20:09 | XMS_ITS | Clinical Summary ---
Author Organization [address] [place] [address] [place] [phone] Phone Care Team Providers Care Motion Designer Name Role Phone Erica Lopez MD Primary Care Provider Allergies Active Allergy Reactions Criticality Noted Date Comments Erythromycin Hives Medium 04/12/2020 Metoclopramide Hcl Anxiety,Hallucinatio ns,Othe r High 11/17/2019 And delusions Penicillins Hives,Rash Medium 03/18/2021 Medications cholecalciferol , vitamin D3, 100 mcg (4,000 unit) tablet Take 1,000 Units by mouth daily. Active ondansetron (ZOFRAN) 4 mg tablet Take 1 tablet (4 mg total) by mouth once daily as needed. 06/18/2020 Active oxyBUTYnin (DITROPAN) 5 mg tablet Take 0.5 tablets (2.5 mg total) by mouth 2 (two) times a day. 03/26/2021 Active venlafaxine XR (EFFEXOR-XR) 150 mg 24 hr capsule Take 1 capsule (150 mg total) by mouth. 10/02/2024 Active calcium-magnesi um-zinc 333-133-5 mg tablet Take by mouth. Active ascorbic acid (VITAMIN C) 250 mg tablet Take 1 tablet (250 mg total) by mouth daily. Active anastrozole (ARIMIDEX) 1 mg Take 1 tablet (1 mg total) by mouth 1 (one) time each day 07/10/2024 Active zoledronic acid 4 mg recon soln Infuse into a venous catheter. Active nortriptyline (PAMELOR) 10 mg capsule Take 1 capsule (10 mg total) by mouth at bedtime. Active cyclobenzaprine (FLEXERIL) 10 mg tablet Take 1 tablet (10 mg total) by mouth every 8 (eight) hours if needed for muscle spasms for up to 210 doses. 30 tablet 6 03/21/2025 Active clindamycin (CLEOCIN) 300 mg capsule Take 1 capsule (300 mg total) by mouth 3 (three) times a day for 10 days. 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 12/06/2024 Encounters Date Type Department Care Team Description 05/03/2025 8:00 AM EDT Office Visit Plastic & Reconstructive Surgery [address] [phone] Lynn Guerrero PA Aftercare following surgery of the skin or subcutaneous tissue (Primary Dx) 04/17/2025 9:00 AM EDT Office Visit Plastic & Reconstructive Surgery [address] [phone] Tripp Meléndez PA Aftercare following surgery of the skin or subcutaneous tissue (Primary Dx) 04/09/2025 9:00 AM EDT Office Visit Plastic & Reconstructive Surgery [address] [phone] Tripp Meléndez PA Malignant neoplasm of left female breast, unspecified estrogen receptor status, unspecified site of breast (CMS/HCC V24, CMS/HCC V28) (Primary Dx); Acquired absence of bilateral breasts and nipples; Radiation-induced fibrosis of skin from therapeutic procedure 04/03/2025 7:48 AM EDT Anesthesia Event [facility] [place] [address] [place] [phone] Leo Knott MD Barnes, Tyanna R, CRNA 04/03/2025 7:30 AM EDT - 04/03/2025 12:00 PM EDT Surgery [facility] [place] [address] [place] [phone] Darnell Tian DO LIPOSUCTION GRAFT FAT ABDOMEN TO BREAST [18843 (CPT ) +1 more] 04/03/2025 6:17 AM EDT - 04/03/2025 12:56 PM EDT Hospital Encounter [facility] [place] [address] [place] [phone] Darnell Tian DO Malignant neoplasm of left female breast, unspecified estrogen receptor status, unspecified site of breast ([facility]/HCC V24, CMS/[facility] V28); Acquired absence of bilateral breasts and nipples; Radiation-induced fibrosis of skin from therapeutic procedure Discharge Disposition: Home or Self Care 03/21/2025 9:00 AM EDT Consult Plastic & Reconstructive Surgery [facility] [address] [place] [phone] Darnell Tian DO Malignant neoplasm of left female breast, unspecified estrogen receptor status, unspecified site of breast (CMS/HCC V24, CMS/[facility] V28) (Primary Dx); Acquired absence of bilateral breasts and nipples; Radiation-induced fibrosis of skin from therapeutic procedure 03/01/2025 Telephone General Surgery - [facility] [address] [facility] [address] [place] [address] Darnell Tian DO from Last 3 Months Surgical History Surgery Date Site/Laterality Comments KNEE SURGERY Right PROCEDURE:KNEE SURGERY KNEE ARTHROSCOPY Right PROCEDURE:KNEE ARTHROSCOPY KNEE SURGERY Right PROCEDURE:KNEE SURGERY CHOLECYSTECTOMY PROCEDURE:CHOLECYSTECTOM Y MASTECTOMY, RADICAL 07/19/2020 - 07/18/2021 BREAST ENHANCEMENT SURGERY W IMPLANT MENISCECTOMY KNEE ARTHROPLASTY Medical History Medical History Date Comments Cancer (CMS/HCC V24, CMS/HCC V28) Anxiety Family History Medical History Relation Name Comments Hyperlipidemia Father Relation Name Status Comments Father Social History Tobacco Use Types Packs/Day Years Used Date Smoking Tobacco: Former Cigarettes 0 07/19/1996 - 07/19/2003 Smokeless Tobacco: Never Alcohol Use Standard Drinks/Week Comments Yes 1 (1 standard drink = 0.6 oz pur e alcohol) social Interpersonal Safety Answer Date Record ed Physical Abuse Unrecognized value 04/03/2025 Verbal Abuse Unrecognized value 04/03/2025 Comments No Sex and Gender Information Value Date Recorded Sex Assigned at Not on file Legal Sex Female 7:19 PM EST Gender Identity Not on file Sexual Orientation Not on file Obstetrics History Last Filed Vital Signs Vital Sign Reading Time Taken Comments Blood Pressure 118/75 04/03/2025 11:24 AM EDT Pulse 106 04/03/2025 11:24 AM EDT Temperature 36.4 C (97.5 F) 04/03/2025 11:24 AM EDT Respiratory Rate 18 04/03/2025 11:24 AM EDT Oxygen Saturation 94% 04/03/2025 11:24 AM EDT Inhaled Oxygen Concentration - - Weight 56.7 kg (125 lb) 03/21/2025 9:12 AM EDT Height 170.2 cm (5' 7 ) 03/21/2025 9:12 AM EDT Body Mass Index 19.58 03/21/2025 9:12 AM EDT Plan of Treatment Upcoming Encounters Date Type Department Care Team (Late st Contact Info) Description 07/05/2025 9:00 AM EST Office Visit Plastic & Reconstructive Surgery - [facility] [address] [place] [phone] Lynn Guerrero PA [address] [place] [phone] Health Maintenance Due Date Last Done Comments Colorectal Cancer Screening: Colonoscopy 1974 Hepatitis B Vaccines (1 of 3 - 19+ 3-dose series) 1993 Zoster Vaccines (1 of 2) 1993 Cervical Cancer Screening: Pap Smear 11/02/1995 Depression Screening 07/19/2024 RSV Immunization Adult Patients (1 - Risk 50-74 years 1-dose series) 2024 HIV Screening 11/23/2024 Social Influencers of Health Screening 11/23/2024 COVID-19 Vaccine ( season) 2025 08/04/2021, 2020, 10/04/2020 Influenza Vaccine (#1) 2025 , 07/05/2023, 06/29/2022, Additional history exists Pneumococcal Vaccine: 50+ Years (3 of 3 - PCV20 or PCV21) 02/21/2026 02/21/2021, 12/20/2020 DTaP,Tdap,and Td Vaccines (3 - Td or Tdap) 02/23/2033 02/23/2023, 12/20/2009 Hepatitis C Screening Completed 12/07/2023 HIB Vaccines Aged Out No longer eligi ble based on patient's age to complete this topic HPV Vaccines Aged Out No longer eligi ble based on patient's age to complete this topic Hepatitis A Vaccines Aged Out No long er eligible based on patient's age to complete this topic IPV Vaccines Aged Out No longer eligi ble based on patient's age to complete this topic MMR Vaccines Aged Out No longer eligi ble based on patient's age to complete this topic Meningococcal ACWY Vaccine Aged Out N o longer eligible based on patient's age to complete this topic Meningococcal B Vaccine Aged Out No l onger eligible based on patient's age to complete this topic RSV Immunization Patients Under 20 months Aged Out No longer eligible based on patient's age to complete this topic Varicella Vaccines Aged Out No longer eligible based on patient's age to complete this topic Procedures Procedure Name Priority Date/Time Associated Diagnosis Comments TH AN ENDOTRACHEAL(NO CHARGE) Routine 04/03/2025 8:16 AM EDT LA GRAFTING OF AUTOLOGOUS FAT BY LIPO EA ADDL 50 CC 04/03/2025 7:50 AM EDT Malignant neoplasm of left female breast, unspecified estrogen receptor status, unspecified site of breast (CMS/HCC V24, CMS/HCC V28) 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-induced fibrosis of skin from therapeutic procedure Case Notes Liposuction, fat grafting machine Special Needs 3.5 hrs with 30 minutes cleanup Needs Lip suction and fat grafting machine LA GRAFTING OF AUTOLOGOUS FAT BY LIPO 50 CC OR LESS 04/03/2025 7:50 AM EDT Malignant neoplasm of left female breast, unspecified estrogen receptor status, unspecified site of breast (CMS/HCC V24, CMS/HCC V28) 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-induced fibrosis of skin from therapeutic procedure Case Notes Liposuction, fat grafting machine Special Needs 3.5 hrs with 30 minutes cleanup Needs Lip suction and fat grafting machine COMPLETE BLOOD COUNT Routine 04/03/2025 6:55 AM EDT ACTIVATED PARTIAL THROMBOPLASTIN TIME Routine 04/03/2025 6:52 AM EDT Malignant neoplasm of left female breast, unspecified estrogen receptor status, unspecified site of breast (CMS/HCC V24, CMS/HCC V28) 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-induced fibrosis of skin from therapeutic procedure PROTHROMBIN TIME WITH INR Routine 04/03/2025 6:52 AM EDT Malignant neoplasm of left female breast, unspecified estrogen receptor status, unspecified site of breast (CMS/HCC V24, CMS/HCC V28) 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-induced fibrosis of skin from therapeutic procedure COMPREHENSIVE METABOLIC PANEL Routine 04/03/2025 6:52 AM EDT Malignant neoplasm of left female breast, unspecified estrogen receptor status, unspecified site of breast (CMS/HCC V24, CMS/HCC V28) 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-induced fibrosis of skin from therapeutic procedure from Last 3 Months Results * TH AN ENDOTRACHEAL(NO CHARGE) (04/03/2025 8:16 AM EDT) Gerald Sewell SRNA - 04/03/2025 8:16 AM EDT RAFI Pratt 04/03/2025 8:25 AM General Information and Staff Patient location during procedure: OR Anesthesiologist: Leo Knott MD Resident/RELAY CHECKER: Delmis Baird CRNA Other anesthesia staff: RAFI Pratt Performed by: RAFI Pratt Authorized by: Leo Knott MD Intubation Airway not difficult Urgency: elective Final Airway Details Successful airway: ETT Cuffed: yes Successful intubation technique: video laryngoscopy Facilitating devices/methods: intubating stylet and cricoid pressure Endotracheal tube insertion site: oral Blade: Phuong (video laryngoscope) Blade size: #3 ETT size (mm): 7.0 Cormack-Lehane Classification: grade III - view of epiglottis only Placement verified by: chest auscultation and capnometry Cuff volume (mL): 8 Measured from: lips ETT to lips (cm): 20 Number of attempts at approach: 2 Ventilation between attempts: BVM Number of other approaches attempted: 2Final airway type: endotracheal airway Indications and Patient Condition Indications for airway management: anesthesia Spontaneous Ventilation: absent Sedation level: Yes Preoxygenated: yes Soft Tissue Damage: No Dentition Unchanged: Yes Patient position: neutral MILS maintained throughout Mask difficulty assessment: 1 - vent by mask us Leo Knott MD ANESTHESIA ORDERABLES Final Re sult * (ABNORMAL) CBC (04/03/2025 6:55 AM EDT) [facility] Signature WBC 3.8(L) 4.8 - 10.8 K/mcL LAB HEMETOLOGY METHOD 04/03/2025 7:16 AM [facility] RBC 4.30 3.80 - 4.80 M/mcL LAB HEMETOLOGY METHOD 04/03/2025 7:16 AM [facility] Hemoglobin 12.7 11.5 - 16.0 g/dL LAB HEMETOLOGY METHOD 04/03/2025 7:16 AM [facility] Hematocrit 38.3 35.0 - 47.0 % LAB HEMETOLOGY METHOD 04/03/2025 7:16 AM [facility] MCV 90.1 79.0 - 98.0 FL LAB HEMETOLOGY METHOD 04/03/2025 7:16 AM [facility] MCH 29.9 27.0 - 32.0 pcg LAB HEMETOLOGY METHOD 04/03/2025 7:16 AM [facility] MCHC 33.2 32.0 - 37.0 g/dL LAB HEMETOLOGY METHOD 04/03/2025 7:16 AM [facility] RDW 13.2 11.0 - 15.0 % LAB HEMETOLOGY METHOD 04/03/2025 7:16 AM [facility] Platelets 182 130 - 400 K/mcL LAB HEMETOLOGY METHOD 04/03/2025 7:16 AM EDT [facility] MPV 9.5 7.0 - 11.0 FL LAB HEMETOLOGY METHOD 04/03/2025 7:16 AM EDT [facility] NRBC 0.0 <1.0 % LAB HEMETOLOGY METHOD 04/03/2025 7:16 AM EDT [facility] NRBC Absolute 0.00 <0.10 K/mcL LAB HEMETOLOGY METHOD 04/03/2025 7:16 AM EDT [facility] Blood Venous blood specimen / Unknown Venipuncture / Unknown 04/03/2025 6:55 AM EDT 04/03/2025 7:02 AM EDT Darnell Tian DO LAB BLOOD ORDERABLES Final R esult Performing Organization Address City/[facility]/ZIP Co de Phone Number [facility] [address] [place] [address], [place] [phone] * Activated partial thromboplastin time (04/03/2025 6:52 AM EDT) [facility] aPTT 32.3 24.1 - 39.3 sec LAB COAGULATION METHOD 04/03/2025 7:27 AM EDT [facility] Blood Venous blood specimen / Unknown Venipuncture / Unknown 04/03/2025 6:52 AM EDT 04/03/2025 7:02 AM EDT Darnell Tian DO LAB BLOOD ORDERABLES Final R esult [facility] [address] [place] [address], [place] [phone] * (ABNORMAL) Prothrombin time with INR (04/03/2025 6:52 AM EDT) [facility] Protime 10.2(L) 10.6 - 13.9 sec LAB COAGULATION METHOD 04/03/2025 7:27 AM [facility] INR 0.8 LAB COAGULATION METHOD 04/03/2025 7:27 AM [facility] Blood Venous blood specimen / Unknown Venipuncture / Unknown 04/03/2025 6:52 AM EDT 04/03/2025 7:02 AM EDT us Darnell Tian DO LAB BLOOD ORDERABLES Final R esult [facility] [address] [place] [address], * (ABNORMAL) CMP (04/03/2025 6:52 AM EDT) [facility] Sodium 139 133 - 145 mmol/L LAB CHEMISTRY METHOD 04/03/2025 8:01 AM [facility] Potassium 3.9 3.5 - 5.5 mmol/L LAB CHEMISTRY METHOD 04/03/2025 8:01 AM [facility] Chloride 102 96 - 110 mmol/L LAB CHEMISTRY METHOD 04/03/2025 8:01 AM [facility] CO2 35(H) 21 - 32 mmol/L LAB CHEMISTRY METHOD 04/03/2025 8:01 AM [facility] Anion Gap 2(L) 3 - 11 LAB CHEMISTRY METHOD 04/03/2025 8:01 AM [facility] Glucose 83 70 - 100 mg/dL LAB CHEMISTRY METHOD 04/03/2025 8:01 AM [facility] BUN 15 5 - 25 mg/dL LAB CHEMISTRY METHOD 04/03/2025 8:01 AM [facility] Creatinine 0.70 0.50 - 1.10 mg/dL LAB CHEMISTRY METHOD 04/03/2025 8:01 AM [facility] eGFR 106 >=60 mL/min/1. 73m2 LAB CHEMISTRY METHOD 04/03/2025 8:01 AM [facility] Comment:Calculation based on the Chronic Kidney Disease Epidemiology Collaboration (CKD-EPI) equation refit without adjustment for race. BUN/Creatinine Ratio 21.4 LAB CHEMISTRY METHOD 04/03/2025 8:01 AM [facility] Calcium 9.2 8.5 - 10.5 mg/dL LAB CHEMISTRY METHOD 04/03/2025 8:01 AM [facility] AST (SGOT) 18 10 - 42 unit/L LAB CHEMISTRY METHOD 04/03/2025 8:01 AM [facility] ALT (SGPT) 23 10 - 60 unit/L LAB CHEMISTRY METHOD 04/03/2025 8:01 AM [facility] Alkaline Phosphatase 39(L) 42 - 121 unit/L LAB CHEMISTRY METHOD 04/03/2025 8:01 AM [facility] Total Protein 6.3 6.0 - 8.0 g/dL LAB CHEMISTRY METHOD 04/03/2025 8:01 AM [facility] Albumin 3.9 3.2 - 5.0 g/dL LAB CHEMISTRY METHOD 04/03/2025 8:01 AM [facility] Total Bilirubin 0.4 0.0 - 1.4 mg/dL LAB CHEMISTRY METHOD 04/03/2025 8:01 AM [facility] Blood Venous blood specimen / Unknown Venipuncture / Unknown 04/03/2025 6:52 AM EDT 04/03/2025 7:02 AM EDT Darnell Tian DO LAB BLOOD ORDERABLES Final R esult [facility] [address] [place] [address], [place] [phone] from Last 3 Months Insurance [employer] [facility] Advance Directives * Full Code - Default (Latest Code Status on File) Date Activated Date Inactivated Comments 04/03/2025 6:45 AM 04/03/2025 2:56 PM This is orde r is used when code status has not been discussed with the patient, or code status is otherwise unknown/unconfirmed To update the patient's code status, place a code status order. Do not modify or discontinue any currently active code status orders. Care Teams Motion Designer Relationship Specialty Start Date End Date Erica Lopez MD [address] [place] [address] [address] [place] [address] PCP - General Family Medicine 04/12/20
--- OUTSIDE RECORDS SUMMARY | 2025-05-19 20:09 | XMS_ITS | Clinical Summary ---
Author Organization [facility] lin Address [address] [facility] [place] [address] Care Team Providers Care Pocket Builder Name Role Phone Erica Lopez MD Primary Care Prov ider Immunizations Immunization Administration Dates Next Due Flucelvax Trivalent PFS IM; Without Preservative (18+ mos) 05/28/2018 Social History Tobacco Use Types Packs/Day Years Used Date Smoking Tobacco: Never Assessed Comments Unknown Sex and Gender Information Value Date Recorded Sex Assigned at Not on file Legal Sex Female 5:05 PM EST Gender Identity Not on file Sexual Orientation Not on file Plan of Treatment Not on file Medical Devices Not on file Insurance [employer] Care Teams Pocket Builder Relationship Specialty Start Date End Date Erica Lopez MD [address] [place] [phone] PCP - General Family Medicine 05/28/18
--- OUTSIDE RECORDS SUMMARY | 2025-05-19 20:09 | XMS_ITS | Clinical Summary ---
Author Organization [facility] Address [address] [place] [address] Phone Care Team Providers Care Chemistry Department Chair Name Role Phone Self-Referred, Patient Unavailable Unavailab Cheyanne Elliott MD, MPH Unavailable [phone] Gonzalo Troy MD Unavailable [phone] Sabrina Hidalgo MD Unavailable Sarah Porter PA-C Unavailable [phone] Conchita Menezes MD Unavailable [phone] Erica Lopez MD Primary Care Provider [phone] Allergies Active Allergy Reactions Criticality Noted Date Comments Erythromycin Hives 04/12/2020 Penicillins Rash Low 03/18/2021 Metoclopramide Hcl Hallucinations High 11/17/2019 Medications oxybutynin (DITROPAN) 5 MG tablet Take 2.5 mg by mouth 2 (two) times a day. 03/26/2021 Active anastrozole (ARIMIDEX) 1 mg tablet Take 1 mg by mouth daily. Active venlafaxine (EFFEXOR) 75 MG tablet Take 75 mg by mouth daily. Active ondansetron (ZOFRAN) 4 MG tablet Take 4 mg by mouth as needed. 02/03/2023 Active ascorbic acid, vitamin C, (VITAMIN C) 250 MG tablet Take 250 mg by mouth daily. Active cholecalciferol (VITAMIN D3) 4,000 unit tablet Take 1,000 Units by mouth daily. Active calcium-magnesiu m-zinc 333-133-5 mg Tab Take by mouth. Active Active Problems Problem Noted Date Diagnosed Date History of breast implant removal 02/18/2022 Migraines 09/28/2020 Invasive lobular carcinoma of left breast in fem tristin 09/27/2020 Immunizations Immunization Administration Dates Next Due COVID-19 (Pre-05/10) Moderna Vaccine, mRNA, PF 0 2020,10/04/2020 Family History Medical History Relation Comments Breast cancer Niece Maternal niece. Diagnosed in 40s. Relation Status Comments Niece Social History Tobacco Use Types Packs/Day Years Used Date Smoking Tobacco: Former Smokeless Tobacco: Never Tobacco Cessation:Counseling Given: Not Answered Comments:Smoked for 6-7 years in her 20s. Alcohol Use Standard Drinks/Week [...] Orientation Straight 09/24/2020 8: 34 PM EST Last Filed Vital Signs Vital Sign Reading Time Taken Comments Blood Pressure 120/75 03/15/2023 1:29 PM EDT Pulse 76 03/15/2023 1:29 PM EDT Temperature 36.2 C (97.2 F) 03/15/2023 1:29 PM EDT Respiratory Rate 20 03/15/2023 1:29 PM EDT Oxygen Saturation 98% 03/15/2023 1:29 PM EDT Inhaled Oxygen Concentration - - Weight 55.8 kg (123 lb) 03/08/2023 3:26 PM EDT Height 170.2 cm (5' 7 ) 03/08/2023 3:26 PM EDT Body Mass Index 19.26 03/08/2023 3:26 PM EDT Plan of Treatment Health Maintenance Due Date Last Done Comments LIPID PANEL 1974 DEPRESSION SCREENING 1986 SMOKING Hx and SMOKELESS TOBACCO SCREENING 11/02/1987 HIV ONE-TIME SCREENING (18-65 YEARS) 1992 ZOSTER VACCINES (1 of 2) 1993 PAP SMEAR 11/02/1995 COLOGUARD 11/02/2019 COLONOSCOPY 11/02/2019 COLORECTAL CANCER SCREENING 11/02/2019 FIT TEST 11/02/2019 FOBT 11/02/2019 SIGMOIDOSCOPY 11/02/2019 VIRTUAL COLONOSCOPY 11/02/2019 MAMMOGRAM 09/27/2022 09/27/2020, 08/20, 08/23/2020, Additional history exists INFLUENZA VACCINE (#1) 2025 , 06/29/2022, 06/26/2021, Additional history exists COVID-19 VACCINE ( season) 2025 08/04/2021, 2020, 2020, Additional history exists PNEUMOCOCCAL VACCINES (50+ years) (3 of 3 - PPSV23, PCV20 or PCV21) 02/21/2026 02/21/2021, 12/20/2020 Adult Td,Tdap Booster 02/23/2033 02/23/2023 RSV VACCINE (1 - 1-dose 75+ series) 2049 HEPATITIS C SCREENING Completed 12/07/2023 HEPATITIS A VACCINES Aged Out No long er eligible based on patient's age to complete this topic HIB VACCINES Aged Out No longer eligi ble based on patient's age to complete this topic MENINGOCOCCAL VACCINES (ACWY) Aged Out No longer eligible based on patient's age to complete this topic MENINGOCOCCAL VACCINES (B) Aged Out N o longer eligible based on patient's age to complete this topic Medical Devices Implanted Type Area Road Machine Operator Device Identifier Shelf Expiration Date Model / Serial / Lot Iud Marker Trimark 13mm Biopsy Breast Tissue Mri Vabb System Titanium Cork Cs/10ea - [id number] Implanted:Qty: 1 on 10/17/2020 at [facility] Left: Breast [employer] TRIMARK TD 13MR / / Graft Soft Tissue 1.6 Plus/Minus .4mm Med Contour Perforated Rtu Alloderm Regenerative Matrix Implantable - [id number] Implanted:Qty: 1 on 11/05/2020 by Kandy Gibbs MD at [facility] Left: Breast ALLERGAN [id number] 06/17/2022 [id number] / / [id number] Graft Soft Tissue 1.6 Plus/Minus .4mm Med Contour Perforated Rtu Alloderm Regenerative Matrix Implantable - [id number] Implanted:Qty: 1 on 11/05/2020 by Kandy Gibbs MD at [facility] Left: Breast ALLERGAN 06/17/2022 [id number] / / [id number] Graft Soft Tissue 1.6 Plus/Minus .4mm Med Contour Perforated Rtu Alloderm Regenerative Matrix Implantable - [id number] Implanted:Qty: 1 on 11/05/2020 by Kandy Gibbs MD at [facility] Right: Breast ALLERGAN 03/18/2022 [id number] / / [id number] Graft Soft Tissue 1.6 Plus/Minus .4mm Med Contour Perforated Rtu Alloderm Regenerative Matrix Implantable - [id number] Implanted:Qty: 1 on 11/05/2020 by aKndy Gibbs MD at [facility] Right: Breast ALLERGAN 01/15/2022 [id number] / / [id number] Coremaker Apprentice Tissue 500cc W13cm H12cm P6.7cm Style 133s Smooth Natrelle Fourte Moderate Extra - [id number] Implanted:Qty: 1 on 11/05/2020 by Kandy Gibbs MD at [facility] Left: Breast ALLERGAN [id number] 05/31/2024 133S-MX-13 -T / [id number] / [id number] Coremaker Apprentice Tissue 500cc W13cm H12cm P6.7cm Style 133s Smooth Natrelle Fourte Moderate Extra - [id number] Implanted:Qty: 1 on 11/05/2020 by Kandy Gibbs MD at [facility] Right: Breast ALLERGAN [id number] 03/29/2024 133S-MX-13 -T / [id number] / [id number] Breast Implant 445cc Natrelle Inspira Silicone Smooth Moderate Profile - [id number] Implanted:Qty: 1 on 12/16/2021 by Kandy Gibbs MD at [facility] Left: Breast ALLERGAN 09/15/2025 [facility]-445 / [id number] / Explanted Type Area Road Machine Operator Device Identifier Shelf Expiration Date Model / Serial / Lot Breast Implant Explanted:Qty: 1 on 02/18/2022 at [facility] Left: Breast 02/18/2022 / NA / NA Description:EXPLANTED REDD Monteiro LEFT BREAST IMPLANT Breast Implant 405cc Natrelle Inspira Silicone Smooth Moderate Profile - [id number] Implanted:Qty: 1 on 12/16/2021 by Kandy Gibbs MD at [facility] Explanted:Qty: 1 on 03/15/2023 by Kandy Gibbs MD at [facility] Right: Breast ALLERGAN 10/04/2025 [facility]-405 / [id number] / Procedures Procedure Name Priority Date/Time Associated Diagnosis Comments BI MRI BREAST WITH AND WITHOUT CONTRAST (BILATERAL) Routine 09/27/2020 4:17 PM EST Malignant neoplasm of left breast in female, estrogen receptor positive, unspecified site of breast from Last 3 Months or Most Recently Relevant to Health Maintenance Results * (ABNORMAL) BI MRI BREAST WITH AND WITHOUT CONTRAST (BILATERAL) (09/27/2020 4:17 PM EST) Anatomical Region Laterality Modality Breast Left, Breast Right, Breast Bilateral Bila teral Magnetic Resonance Other 09/28/2020 2:46 PM EST Impressions 09/28/2020 3:32 PM EST Left Breast: BI-RADS Category 6: Known biopsy-proven malignancy. Note is made that the patient's left breast was laterally positioned for this examination. 1. An irregular heterogenously enhancing dominant mass in the upper outer breast at site of biopsy proven invasive lobular carcinoma. There is extensive surrounding non-mass enhancement and satellite masses in the lower outer breast. The collective area of abnormal mass and nonmass enhancement measures 6.9 x 4.8 x 1.3 cm, and the enhancement extends to 0.3 cm from the base of the nipple. 2. Prominent left axillary lymph nodes and left internal mammary chain lymph node raises concern for metastatic disease. Appropriate action should be taken. Recommendation: Surgical consultation at this time. Right Breast: 3: Probably benign findings. A 0.4 cm enhancing mass in the right central outer breast, possibly an intramammary lymph node. A targeted ultrasound is recommended for correlation. If the ultrasound shows no sonographic correlate, then a follow-up diagnostic right MRI is recommended in 6 months to document stability. Recommendation: Right limited ultrasound at this time. Follow-up recommendations were communicated and documented using the Alert Notification of Critical Radiology Results (ANCR) system. OVERALL ASSESSMENT -- 6 KNOWN BIOPSY PROVEN MALIGNANCY ATTESTATION: Oksana Cespedes, as teaching physician have reviewed the images, if any, for this patient's exam, and if necessary, have edited the report originally created by Portia Doherty. Narrative 09/28/2020 3:32 PM EST Reason for exam (per EHR order): * Invasive breast cancer, stage I/II/III, initial workup Additional clinical information obtained from the EHR: 44-year-old female with newly diagnosed left breast invasive lobular carcinoma. Data: Diagnostic evaluation. Staging for recent diagnosis of breast cancer. Risk Factors: New diagnosis of breast cancer. Dense breast tissue. Family history: No known relatives with breast cancer. LMP: The patient has an IUD. BILATERAL BREAST MRI, TECHNIQUE: 3.0T Multiplanar MRI imaging of both breasts was performed with a dedicated breast coil, before and after intravenous administration of gadolinium contrast, using the standard breast mass protocol. Computer-aided detection was used to aid in interpretation. IVCM: Administered. COMPARISON WITH PRIOR MRIs: None available. General breast composition: Extreme amount of fibroglandular tissue. Background parenchymal enhancement: Marked. FINDINGS: Left Breast: Note is made that the patient's left breast was laterally positioned for the examination, with the nipple displaced laterally. Marked background parenchymal enhancement is present. Signal void artifact is noted in the upper outer breast (2:71) corresponding to coil marker clip at site of biopsy proven invasive lobular carcinoma. The clip artifact is present along the anterior aspect of a 3.2 x 2.2 x 1.3 cm (CC x AP x TRV) irregular heterogeneously enhancing spiculated mass in the upper outer breast, with fast initial and mixed delayed phase kinetics. There is surrounding non-mass enhancement extending to the lower outer quadrant with satellite masses. The collective area of abnormal mass and nonmass enhancement measures 6.9 x 4.8 x 1.3 (CC x AP x TRV; 6:61, 9:22, 9:23) with enhancement extending 0.3 cm from the nipple (6:80). There is no visible nipple retraction. The posterior aspect of the enhancement is abuts the anterior pectoralis, without suspicious enhancement of the substance of the pectoralis muscle. The T2 weighted series shows a few scattered round and oval high signal intensity circumscribed masses consistent with cysts. There is also signal void artifact in the upper inner left breast from hourglass biopsy clip at site of a prior biopsy (2:57). There are a few prominent level 1 left axillary lymph nodes; for example one of the most prominent is seen on series 7 image 7. There is a 0.7 cm left internal mammary chain lymph node (7:43, 9:48). Right Breast: Marked background parenchymal enhancement is present. Review of the dynamic contrast-enhanced series shows a 0.4 cm T2 hyperintense enhancing circumscribed mass in the right central outer breast, middle depth (6:80, 9:105), which demonstrates fast initial and persistent delayed phase kinetics. No other suspicious rapidly enhancing masses or other suspicious enhancement patterns. The T2 weighted series shows scattered round and oval high signal intensity circumscribed masses consistent with cysts. Miscellaneous findings: none. Procedure Note Oksana Menon MD - 09/28/2020 Reason for exam (per EHR order): * Invasive breast cancer, stageI/II/III, initial workup Additional clinical information obtained from the EHR: 44-year-old female with newly diagnosed left breast invasive lobularcarcinoma. Data: Diagnostic evaluation. Staging for recent diagnosis of breastcancer. Risk Factors: New diagnosis of breast cancer. Dense breast tissue. Family history: No known relatives with breast cancer. LMP: The patient has an IUD. BILATERAL BREAST MRI, TECHNIQUE: 3.0T Multiplanar MRI imaging of both breasts was performed with a dedicatedbreast coil, before and after intravenous administration of gadoliniumcontrast, using the standard breast mass protocol. Computer-aideddetection was used to aid in interpretation. IVCM: Administered. COMPARISON WITH PRIOR MRIs: None available. General breast composition: Extreme amount of fibroglandular tissue. Background parenchymal enhancement: Marked. FINDINGS: Left Breast: Note is made that the patient's left breast was laterally positioned forthe examination, with the nipple displaced laterally. Marked background parenchymal enhancement is present. Signal void artifact is noted in the upper outer breast (2:71)corresponding to coil marker clip at site of biopsy proven invasivelobular carcinoma. The clip artifact is present along the anterior aspectof a 3.2 x 2.2 x 1.3 cm (CC x AP x TRV) irregular heterogeneouslyenhancing spiculated mass in the upper outer breast, with fast initial andmixed delayed phase kinetics. There is surrounding non-mass enhancementextending to the lower outer quadrant with satellite masses. Thecollective area of abnormal mass and nonmass enhancement measures 6.9 x4.8 x 1.3 (CC x AP x TRV; 6:61, 9:22, 9:23) with enhancement extending 0.3cm from the nipple (6:80). There is no visible nipple retraction. Theposterior aspect of the enhancement is abuts the anterior pectoralis,without suspicious enhancement of the substance of the pectoralismuscle. The T2 weighted series shows a few scattered round and oval high signalintensity circumscribed masses consistent with cysts. There is also signal void artifact in the upper inner left breast fromhourglass biopsy clip at site of a prior biopsy (2:57). There are a few prominent level 1 left axillary lymph nodes; for exampleone of the most prominent is seen on series 7 image 7. There is a 0.7 cmleft internal mammary chain lymph node (7:43, 9:48). Right Breast: Marked background parenchymal enhancement is present. Review of the dynamic contrast-enhanced series shows a 0.4 cm Y1kgpzzuogyvzu enhancing circumscribed mass in the right central outerbreast, middle depth (6:80, 9:105), which demonstrates fast initial andpersistent delayed phase kinetics. No other suspicious rapidly enhancingmasses or other suspicious enhancement patterns. The T2 weighted seriesshows scattered round and oval high signal intensity circumscribed massesconsistent with cysts. Miscellaneous findings: none. IMPRESSION: Left Breast: BI-RADS Category 6: Known biopsy-proven malignancy. Note is made that the patient's left breast was laterally positioned forthis examination. 1. An irregular heterogenously enhancing dominant mass in the upper outerbreast at site of biopsy proven invasive lobular carcinoma. There isextensive surrounding non-mass enhancement and satellite masses in thelower outer breast. The collective area of abnormal mass and nonmassenhancement measures 6.9 x 4.8 x 1.3 cm, and the enhancement extends to0.3 cm from the base of the nipple. 2. Prominent left axillary lymph nodes and left internal mammary chainlymph node raises concern for metastatic disease. Appropriate actionshould be taken. Recommendation: Surgical consultation at this time. Right Breast: 3: Probably benign findings. A 0.4 cm enhancing mass in the right central outer breast, possibly anintramammary lymph node. A targeted ultrasound is recommended forcorrelation. If the ultrasound shows no sonographic correlate, then afollow-up diagnostic right MRI is recommended in 6 months to documentstability. Recommendation: Right limited ultrasound at this time. Follow-up recommendations were communicated and documented using the AlertNotification of Critical Radiology Results (ANCR) system. OVERALL ASSESSMENT -- 6 KNOWN BIOPSY PROVEN MALIGNANCY ATTESTATION: Oksana Cespedes, as teaching physician have reviewed theimages, if any, for this patient's exam, and if necessary, have edited thereport originally created by Portia Doherty. us Gonzalo Troy MD IMG MR BREAST Final Result from Last 3 Months or Most Recently Relevant to Health Maintenance Insurance [employer] T[employer] Member Subscriber Plan / Payer (Ef fective 2013-Present) Name:Ignacio Jasmin Relation to Subscriber:Self Name:Ignacio Jasmin Payer ID:[id number] (NAIC) Type:HMO Address: [address] [employer] T[employer] Member Subscriber Plan / Payer (Ef fective 2013-Present) Name:Ignacio Jasmin Relation to Subscriber:Self Name:Ignacio Jasmin Payer ID:[id number] (NAIC) Type:HMO Address: [address] CIG[employer] TPA CIGNA TPA CIGNA TPA CIGNA TPA CIGNA TPA CIGNA TPA CIGNA TPA CIGNA TPA Advance Directives For more information, please contact: [phone] (9AM - 5PM [place], Wednesday-Wednesday) Documents on File Type Date Recorded 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 Healthcare 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 11/12/2020 5:39 PM * Full Code (Latest Code Status on File) Date Activated Date Inactivated Comments 02/18/2022 8:49 PM Question Answer Comments Code Status Confirmed With: Patient Care Teams Chemistry Department Chair Relationship Specialty Start Date End Date Erica Lopez MD [address] [place] [id number] [email or web address] PCP - General Family Medicine 03/26/22 Self-Referred, Patient Referring Physician 09/19/20 Cheyanne Devi MD, MPH [address] [place] [id number] [email or web address] 09/27/20 Gonzalo Troy MD [address] [place] [id number] [email or web address] 09/27/20 Sabrina Hidalgo MD [address] [place] [phone] [email or web address] Radiation Oncology 11/21/20 Sarah Porter PA-C [address] [place] [id number] [email or web address] 11/22/20 Conchita Menezes MD [address] [place] [address] [place] [address] Medical Oncology 11/22/20 Additional Source Comments The information contained in this document represents components of the legal health record. It is not the complete legal health record.[facility]
--- NOTE | 2025-05-19 22:47 | PC.NURSE ---
Sedation completed. Pt awoke stating she feels shoulder still out of place. to bedside. Portable XR to bedside. Vitals stable on monitor. Awake and alert, oriented x3
== END 2025-05-19 23:48 | disposition home or self-care (01) ==
PROVIDERS: Emergency Provider Emergency Medicine; PCP Family Medicine
DX: S43.005A Unspecified dislocation of left shoulder joint, initial encounter (principal); M25.512 Pain in left shoulder; Y93.22 Activity, ice hockey; Y99.8 Other external cause status; Z85.3 Personal history of malignant neoplasm of breast; Z79.899 Other long term (current) drug therapy
CPT/HCPCS: 23650; 73030; 73060; 73200; 96374; 96375; 96376; 99284; 99285; J1171; J1885; J2704; J3360

== ENCOUNTER → 2025-05-19 19:30 | Outpatient (BNV) | payer OTHER, SELFPAY | PROVIDERS: Emergency Provider Emergency Medicine; PCP Family Medicine; Visit Provider Radiology Diagnostic Radiology | DX: S43.022A Posterior subluxation of left humerus, initial encounter (principal) | CPT/HCPCS: 73030 ==